=== PATIENT | female | born 1965 | race Caucasian/White ===

== ENCOUNTER 2022-11-13 16:26 | Emergency (ER) | payer MEDICARE, SELFPAY ==
[2022-11-13 16:36] VITALS: BP 125/73; PULSE 79; RESP 20; TEMP 36.8; O2SAT 99
--- NOTE | 2022-11-13 17:15 | DI.RAD_ITS ---
Exam(s) XR RIBS RT W PA LAT CHEST EXAM: XR RIBS RT W PA LAT CHEST CLINICAL HISTORY: Fall, Right Side TECHNIQUE: 2D digital imaging was performed.Six images were obtained. COMPARISON: No exams were available for comparison FINDINGS: MEDIASTINUM: Normal. HEART: Normal. PULMONARY VASCULATURE: Normal. LUNGS: Clear. PLEURAL SPACE: No pleural effusion or pneumothorax. BONE:Within normal limits for the patient's age. Postsurgical changes are seen in the cervical spine . RIGHT RIBS: Normal. OTHER FINDINGS:There are surgical clips in the right upper quadrant of the abdomen. IMPRESSION: 1. No acute pulmonary findings. 2. Unremarkable right ribs. DATA REPOSITORY: RADIATION DOSE DELIVERED:
--- NOTE | 2022-11-13 17:54 | ED.GENADUL_ITS ---
Discharge Plan Disposition Patient Disposition: Home Condition: Stable Discharge Details Clinical Impression: Rib pain on right side, Fall (on) (from) other stairs and steps, initial encounter Primary Care Provider: None,None ED Provider: Ragini Logan Discharge Instructions Instructions: Fall Prevention (ED), Chest Wall Pain (ED) Additional Instructions: No evidence of broken bones on the x-ray. No problems with your lung. Apply ice, rest. Please take Tylenol or Ibuprofen with food every 4-6 hours as needed for pain and swelling. Take deep breaths to avoid getting pneumonia. You have no rib fracture. Follow up with primary care provider in 3-5 days. Return to ED sooner if any worsening or concerns. Increase oral fluids. Discharge Data Discharge Date/Time-TO BE ENTERED AT DEPARTURE: 11/13/22 19:19 Medical Decision Making 57-year-old female presents to the ER after a mechanical trip and fall at 0730 this morning in a parking lot. She does have some rib pain on the right side denies loss of consciousness no LOC she also has a small abrasion on her right knee. Lung sounds are clear to auscultation bilaterally. She did take Tylenol prior to arrival. X-ray rib and chest air series ordered. Ibuprofen 600 mg p.o. Patient is ambulatory here in the department alert and oriented. Rib series x-ray is negative. No pleural effusion or pneumothorax. Patient reports that she cannot take ibuprofen. I did consider lidocaine patch but she is allergic to lidocaine she reacts with hives. Will order an additional Tylenol and instructed on RICE procedures. This text was generated using [employer] dictation system, please disregard any oddities of phrase or misspellings. HPI General Mode of arrival: ambulatory . Date/Time Provider Initiated Documentation: 11/13/22 17:07 . Limitations to Documentation: no limitations . Information obtained by: patient, RN notes reviewed and old records reviewed . HPI Narrative: 57-year-old female presents to the ER after a mechanical trip and fall at 0730 this morning in a parking lot. She does have some rib pain on the right side denies loss of consciousness no LOC she also has a small abrasion on her right knee. Lung sounds are clear to auscultation bilaterally. She did take Tylenol prior to arrival. Related Data Allergies Allergy/AdvReac Type Severity Reaction Status Date / Time bacitracin Allergy Intermediate Hives Unverified 11/13/22 16:40 [From Neosporin Plus] bee pollen Allergy Intermediate Hives Unverified 11/13/22 16:40 cyclobenzaprine Allergy Intermediate Hives Unverified 11/13/22 16:40 [From Flexeril] lidocaine Allergy Intermediate Hives Unverified 11/13/22 16:40 [From Neosporin Plus] neomycin Allergy Intermediate Hives Unverified 11/13/22 16:40 [From Neosporin Plus] polymyxin B Allergy Intermediate Hives Unverified 11/13/22 16:40 [From Neosporin Plus] pramoxine Allergy Intermediate Hives Unverified 11/13/22 16:40 [From Neosporin Plus] General Stated Complaint: Chest/Rib PEPPER: 4 Review of Systems All systems reviewed & are unremarkable except as noted in HPI and below Musculoskeletal Musculoskeletal: Reports as per HPI and Reports other (Right-sided rib pain, right knee pain after mechanical fall this morning. ) PFSH All Active Problems (Updated 11/13/22 @ 18:42 by Ragini Logan NP) Rib pain on right side (Acute) Fall (on) (from) other stairs and steps, initial encounter (Acute) Social History Smoking risk assessment performed?: No Exam Narrative Exam Narrative: General: Well Developed, Awake and Alert, conversant. Skin: Warm and Dry HEENT: Head: No palpable deformities, Normocephalic Eyes: Pupils PERRLA, EOM's intact. No periorbital eccymosis or step off Ears: Canal patent. Tympanic membranes are clear . No pablo's sign, no hemptympanum. Nose/Face: Atraumatic. Facial bones nontender to palpation and stable with manipulation. Mouth/Throat: No intraoral trauma. Teeth and mandible are intact. Neck: No midline tenderness, no step off, no deformity to palpation of C-spine. Trachea midline. Chest: No surface trauma. Tenderness to the right lateral chest wall. Lungs clear to ausculatation bilaterally. Heart: RRR, no rubs, murmurs or gallop. Abdomen: No abrasions, ecchymosis, or surface trauma. Nondistended. Nontender to palpation no guarding, rebound, or rigidity. Pelvis: Nontender to palpation and stable to compression. Femoral pulses strong and equal Extremities: no surface trauma. Sensation intact. Peripheral pulses intact and equal. Neuro: ANO x4, GCS 15, cranial nerves II through XII intact. Motor and sensory exam nonfocal. Reflexes are symmetric. Course Vital Signs Vital signs: Vital Signs Temperature 36.8 C 11/13/22 16:36 Pulse 79 11/13/22 16:36 Respiratory Rate 20 11/13/22 16:36 Blood Pressure 125/73 11/13/22 16:36 Pulse Oximetry 99 11/13/22 16:36 Temperature 36.8 C 11/13/22 16:36 Pulse 79 11/13/22 16:36 Respiratory Rate 20 11/13/22 16:36 Respiratory Effort Normal 11/13/22 16:41 Blood Pressure 125/73 11/13/22 16:36 Blood Pressure Position Sitting 11/13/22 16:36 Pulse Oximetry 99 11/13/22 16:36 Oxygen Delivery Method Room Air 11/13/22 16:36 Oxygen Flow Rate 0 11/13/22 16:36 Pain Level 9 11/13/22 16:36
[2022-11-13] MEDS: Acetaminophen 500 MG TAB PO (19:18)
== END 2022-11-13 19:19 | disposition home or self-care (01) ==
PROVIDERS: Emergency Provider Registered Nurse Emergency
DX: R07.9 Chest pain, unspecified (principal); W10.9XXA Fall (on) (from) unspecified stairs and steps, initial encounter
CPT/HCPCS: 99283; 71046; 71100

== ENCOUNTER 2022-11-16 09:51 | Emergency (ER) | payer MEDICARE, SELFPAY ==
[2022-11-16 09:58] VITALS: BP 141/85; PULSE 60; TEMP 36.8; O2SAT 98
--- NOTE | 2022-11-16 10:20 | W.ED.GENAD ---
Discharge Plan Disposition Patient Disposition: Home Discharge Details Clinical Impression: Rib pain on right side Primary Care Provider: None,None ED Provider: Herbert Moura Home Meds and New Rx's Prescriptions: New diclofenac sodium 3 % gel 1 applic topical TID PRN (Reason: pain) Qty: 100 1RF Discharge Instructions Instructions: Chest Wall Pain (ED) Additional Instructions: If you have any new or significant worsening of pain or discomfort feel free to return to the emergency department for reassessment. Otherwise continue to use acetaminophen [id number] just do not exceed 3000 mg in a 24-hour period Use pain medication as prescribed and follow-up with urgent care or return to the emergency department as needed. Discharge Data Discharge Date/Time-TO BE ENTERED AT DEPARTURE: 11/16/22 10:43 Medical Decision Making Patient presenting to the emergency department for chief complaint of continued right rib pain. Patient reports fall 3 days ago which she was seen in the emergency department and had imaging performed and no signs of fracture seen at that time. Patient denies any reinjury or trauma, fever chills, productive cough, or other symptoms but just continuing and slightly worsening rib pain. Physical exam shows tenderness over the right mid to lower ribs no crepitus is noted, no ecchymosis is noted clear lung sounds no respiratory distress and normal vital signs except slight hypertension which I feel may be secondary to patient's pain. Patient states she has been using acetaminophen but this has not seemed to help. She states she cannot take NSAIDs orally due to gastric surgery and is allergic to topical lidocaine. Discussed with patient reimaging and how I do not feel this would change patient's disposition even if she had a rib fracture. Patient stated full understanding of this and was agreeable to hold off on repeat imaging. We will try Voltaren gel to see if this helps patient's pain better and limited prescription of tramadol. PDMP was queried and I see no concerning findings for abuse especially with only giving patient 2 to go tablets. Patient will otherwise continue to use acetaminophen and return for new or worsening symptoms. Did offer to assist patient to follow-up with primary care provider but she states that she is extremely leery of primary care providers due to negative experience with her . Patient instructed to return for new or worsening symptoms or further concerns. After discussion of diagnosis and plan of care patient has no further needs, questions, or concerns and states clear understanding to return to the emergency department for any worsening symptoms. This documentation was generated using [employer] dictation system, please disregard any oddities of phrase or misspellings. Medical Records Medical records reviewed: Yes I reviewed the patient's medical records. Medical records narrative: Reviewed previous emergency department visit along with radiological interpretation of imaging HPI General Mode of arrival: ambulatory. Date/Time Provider Initiated Documentation: 11/16/22 09:55. Limitations to Documentation: no limitations. Information obtained by: patient and RN notes reviewed. History of Present Illness 57 year old F presents to the emergency department with the chief complaint of Right rib pain, described as moderate and severe, Quality is described as aching and sharp, and is localized to the right (Right ribs). Patient reports no radiation. Patient started experiencing this day(s) (3) and it has been constant. No relieving factors improve symptom(s), Movement worsens symptoms . Patient notes no other symptoms.. Patient did receive the following treatments prior to arrival, other (Acetaminophen) Related Data Home Medications Medication Instructions Recorded Confirmed diclofenac sodium 3 % topical gel 1 applic topical TID PRN pain #100 11/16/22 grams Previous Rx's Medication Instructions Recorded diclofenac sodium 3 % topical gel 1 applic topical TID PRN pain #100 11/16/22 grams Allergies Allergy/AdvReac Type Severity Reaction Status Date / Time bacitracin Allergy Intermediate Hives Unverified 11/16/22 10:03 [From Neosporin Plus] bee pollen Allergy Intermediate Hives Unverified 11/16/22 10:03 cyclobenzaprine Allergy Intermediate Hives Unverified 11/16/22 10:03 [From Flexeril] lidocaine Allergy Intermediate Hives Unverified 11/16/22 10:03 [From Neosporin Plus] neomycin Allergy Intermediate Hives Unverified 11/16/22 10:03 [From Neosporin Plus] polymyxin B Allergy Intermediate Hives Unverified 11/16/22 10:03 [From Neosporin Plus] pramoxine Allergy Intermediate Hives Unverified 11/16/22 10:03 [From Neosporin Plus] General Stated Complaint: Orthopedic PEPPER: 3 Review of Systems Constitutional Constitutional: Denies chills, Denies fever(s), Denies malaise and Denies weakness Cardiovascular Cardiovascular: Denies chest pain and Denies dyspnea Respiratory Respiratory: Reports cough, Reports pain on inspiration, Reports pain with cough, Denies dyspnea and Reports other (Right rib pain) Gastrointestinal Gastrointestinal: Denies abdominal pain, Denies nausea and Denies vomiting Musculoskeletal Musculoskeletal: Reports as per HPI and Denies back pain Integumentary/Breasts Skin/Breast: Denies unusual bruising and Denies wounds Neurologic Neurologic: Denies weakness PFSH All Active Problems (Updated 11/16/22 @ 10:31 by Herbert Moura NP) Rib pain on right side (Acute) Fall (on) (from) other stairs and steps, initial encounter (Acute) Social History Smoking/Tobacco Use Status: Current-Occasional Smoking risk assessment performed?: Yes Substance use type: marijuana Housing: homeless Exam Const General: cooperative, no acute distress and not ill appearing Orientation: alert, awake and oriented x3 HENMT Mouth: moist mucous membranes Chest Chest: normal inspection of the chest, no crepitus, localized rib tenderness with anteroposterior compression left mid-scapular line involving the 7th rib and involving the 8th rib, tenderness rib right mid-clavicular line involving the 7th rib and involving the 8th rib and No rash Resp Effort & Inspection: normal respiratory effort, able to speak in complete sentences and no respiratory distress Auscultation: clear to auscultation bilaterally Cardio Rate: regular rate Rhythm: regular rhythm Heart Sounds: S1 normal and S2 normal Skin General skin exam: no rashes or lesions noted Neuro General: patient alert, patient awake, patient oriented x3, moves all extremities and no focal motor deficits Sensory Exam: no sensory deficits noted Course Vital Signs Vital signs: Vital Signs Temperature 36.8 C 11/16/22 09:58 Pulse 60 11/16/22 09:58 Blood Pressure 141/85 H 11/16/22 09:58 Pulse Oximetry 98 11/16/22 09:58 Temperature 36.8 C 11/16/22 09:58 Temperature Source Skin 11/16/22 09:58 Pulse 60 11/16/22 09:58 Respiratory Effort Normal 11/16/22 10:01 Blood Pressure 141/85 H 11/16/22 09:58 Pulse Oximetry 98 11/16/22 09:58
[2022-11-16] MEDS: traMADol 50 MG TAB PO (10:33)
== END 2022-11-16 10:43 | disposition home or self-care (01) ==
PROVIDERS: Emergency Provider Nurse Practitioner Family
DX: R07.81 Pleurodynia (principal)
CPT/HCPCS: 99283

== ENCOUNTER 2022-12-29 20:05 | Emergency (ER) | payer MEDICARE, SELFPAY ==
[2022-12-29] VITALS (31 sets, daily range): BP systolic 121–234; BP diastolic 54–182; PULSE 44–131; RESP 7–25; TEMP 36.6; O2SAT 98–100
--- NOTE | 2022-12-29 20:00 | RT.EKG_ITS ---
APPROVED REPORT Exam: Resting ECG Reason for Exam: chest pain Patient Location: E HR:59 bpm ECG Measurements Heart Rate 59 AXIS CO 133 P 96 QRSd 91 QRS 84 QT 429 T 69 QTc 415 Conclusion Sinus bradycardia...rate< 60 Ventricular premature complex...V complex w/ short R-R interval Narrow complex sinus bradycardia at a rate of 59. Normal axis. Intervals within normal limits. T w ave inversion in aVL. No ST segment abnormalities.
--- NOTE | 2022-12-29 20:02 | ED.GENADUL_ITS ---
Discharge Plan Disposition Patient Disposition: Transfer-Acute Inpatient Care Specific Acute Inpt Facility: [facility] Discharge Details Clinical Impression: Angina pectoris, unstable, Blood pressure elevated without history of HTN, Macrocytic anemia Primary Care Provider: Unknown,Unknown ED Provider: Al Campos Home Meds and New Rx's Prescriptions: No Action diclofenac sodium 3 % gel 1 applic topical TID PRN (Reason: pain) Qty: 100 1RF Medical Decision Making This is an uncomfortable appearing normothermic and not tachycardic but markedly hypertensive 57-year-old female smoker with ECG changes concerning for the possibility of early ACS. She has evolving changes with T wave inversion in aVL new since prehospital ECG just prior to arrival which was at that time significant for poor R wave progression. In addition her pain seems to be crescendo pattern chest pain concerning for unstable angina. She also has on limited bedside ultrasound concern for possible septal wall motion abnormality. She has received aspirin. We will repeat ECG and treat with nitroglycerin 0.4 mg sublingually every 5 minutes. We will repeat an ECG now. She is nauseous but not been vomiting so doubt esophageal rupture. No shortness of breath to suggest PE and patient is in neither tachycardic nor hypoxic. No tearing quality aortic dissection. No rash to chest to suggest zoster. No history of trauma to suggest increased risk for pneumothorax. No epigastric pain to suggest pancreatitis. No right upper quadrant tenderness to suggest acute liliya cystitis. Not hypotensive nor dialysis patient so doubt tamponade. We will reach out to [facility] following troponin results as I feel that she will benefit from a left heart catheterization despite her reportedly reassuring stress test 3 to 4 years ago. Will initiate heparinization given unstable angina. 8:38 PM Nitroglycerin did not improve the patient's symptoms. We will treat with 50 mcg of fentanyl. 8:45 PM Initial troponin negative. Comprehensive metabolic panel with normal creatinine. Mild hypoalbuminemia. No anion gap. No prior for comparison. 9:07 PM Normal reassuring magnesium. PTT within normal limits. Heparin has been started. Repeat ECG showing no evolving changes. 9:24 PM Patient reports that her pain is slightly improved. She does state that still radiates to her left shoulder. Still awaiting callback. 9:36 PM CBC with no leukocytosis nor anemia but mild macrocytic anemia with a hemoglobin of 11.1. 9:52 PM I spoke with Dr. Nighat Hazel from cardiology at [facility]. She reported that the accepting from cardiology at [facility] would be Dr. Kali Ontiveros. She advised atorvastatin 80 mg which I ordered. She advised deferring clopidogrel at this point time but that if the patient made troponin she advised loading with 600 mg of clopidogrel. We will reach out to the hospitalist locally for hospitalization while the patient awaits her bed at [facility] which will likely occur tomorrow. 10:13 PM I spoke with Dr. Partida who agreed graciously to accept the patient for hospitalization. I ordered her 4 mg of morphine. 10:[address] [facility] transfer center reported that the patient had been accepted this evening for transfer. Nursing has updated Dr. Partida. I will sign transfer paperwork and have the patient sent via a icebox worker. I was going to order labetalol however the patient was markedly bradycardic so we will defer labetalol. Chronic conditions affecting the care of the patient: Tobacco use History obtained from an outside historian: Paramedics External record review: N/A Diagnostic interpretations performed by me: [Per my independent interpretation chest x-ray shows:] Unremarkable portable chest x-ray Per my independent interpretation EKG shows: ECG #1: Narrow complex sinus bradycardia at a rate of 59. Normal axis. Intervals within normal limits. T wave inversion in aVL. No ST segment abnormalities. ECG #2: narrow complex sinus bradycardia at a rate of 51. Normal axis. Poor R wave progression based on R wave in V3 3 mm. T wave inversion in aVL has resolved. Mild lateral ST segment depressions appear new compared to prior. Prior dated earlier this evening. ECG #3: Narrow complex sinus bradycardia at a rate of 50. Normal axis. Intervals within normal limits. Persistent T wave flattening in aVL. Mild ST segment depressions left lateral chest wall leads. No ST segment elevations. Appears similar to prior dated earlier this evening. Medications: Nitroglycerin, aspirin, ondansetron Social determinants of health affecting disposition: N/A Management discussed with: Cardiology at [facility] Treatment/interventions considered: Withholding heparin however I heparinized the patient given concern for unstable angina Response to therapies provided: No significant improvement with nitroglycerin HPI General Date/Time Provider Initiated Documentation: 12/29/22 20:35 . HPI Narrative: This is a 57-year-old female with no reported past medical history arriving to the emergency department via EMS in the setting of chest pain. Patient reports that she has intermittently had chest pain for the past several days. This evening it occurred at rest and radiated to her left arm and down into her left hand which now feels numb. She reports that it is substernal and squeezing. She reports that it is improved by rest. She reports that it is exacerbated by exertion. She is not feeling short of breath. She has been nauseous but has not been vomiting. She received aspirin nitroglycerin and ondansetron with paramedics. She takes no medications. She does not know her family history as she reportedly has been adopted. She has no history of hypertension hyperlipidemia nor diabetes. She reportedly had a stress test performed 3 to 4 years ago and [place]. Related Data Home Medications Medication Instructions Recorded Confirmed diclofenac sodium 3 % topical gel 1 applic topical TID PRN pain #100 11/16/22 grams Previous Rx's Medication Instructions Recorded diclofenac sodium 3 % topical gel 1 applic topical TID PRN pain #100 11/16/22 grams Allergies Allergy/AdvReac Type Severity Reaction Status Date / Time bacitracin Allergy Intermediate Hives Unverified 11/16/22 10:03 [From Neosporin Plus] bee pollen Allergy Intermediate Hives Unverified 11/16/22 10:03 cyclobenzaprine Allergy Intermediate Hives Unverified 11/16/22 10:03 [From Flexeril] lidocaine Allergy Intermediate Hives Unverified 11/16/22 10:03 [From Neosporin Plus] neomycin Allergy Intermediate Hives Unverified 11/16/22 10:03 [From Neosporin Plus] polymyxin B Allergy Intermediate Hives Unverified 11/16/22 10:03 [From Neosporin Plus] pramoxine Allergy Intermediate Hives Unverified 11/16/22 10:03 [From Neosporin Plus] General PEPPER: 3 PFSH All Active Problems (Updated 12/29/22 @ 21:37 by Al Campos MD) Angina pectoris, unstable (Acute) Blood pressure elevated without history of HTN (Acute) Macrocytic anemia (Acute) Social History Smoking/Tobacco Use Status: Current-Occasional Tobacco Type: cigarettes Smoking risk assessment performed?: Yes Alcohol Intake: current Alcohol Intake frequency: holidays/special occasions only Alcohol type: hard liquor Drug use: Socially Substance use type: marijuana Housing: homeless Do you feel safe at home: Yes Do you feel safe in your relationship?: Yes Exam Narrative Exam Narrative: General: uncomfortable-appearing in no acute distress speaking in complete sentences. Head: Normocephalic, atraumatic. Eye: Pupils equal, round reactive to light. Extraocular eye movements intact. No conjunctival injection. No scleral icterus. Ear, nose, mouth, throat: Grossly normal inspection. Normal voice, handling secretions normally. Neck: Trachea midline. Cardiovascular: Well-perfused distal extremities. Bradycardic rhythm. No murmurs. Respiratory: Nonlabored respiration. Clear lungs bilaterally. Gastrointestinal: Nondistended abdomen. Soft nontender. Musculoskeletal: No significant lower extremity pitting edema. Moving all 4 extremities spontaneously. Skin: Normal for age and race, grossly normal temperature and turgor. No acute rash. Neurologic: Alert and appropriate, no apparent acute deficits. Psychiatric: Mood and manner are appropriate. Grooming and personal hygiene are appropriate. Critical Care Time Critical Care Time Critical Care Time: Yes Total Critical Care Time: 30 Attestation: Active chest pain requiring nitroglycerin and hemodynamic monitoring for hypertension with bradycardia POCUS Exam (ED) Limited Cardiac Exam DATE OF EXAM: 12/29/22 TIME OF EXAM: 20:29 REASON FOR EXAM: Chest pain VISUALIZED STRUCTURES: Left ventricle, LVOT and Interventricular septum VIEW OBTAINED: Apical 4-Chamber, Parasternal long-axis and Subxiphoid PERTINENT FINDINGS/IMPRESSION: Other (Concern for septal wall motion abnormality. Aortic outflow track less than 4 cm.); No LV dysfunction and No p ericardial effusion DIFFERENTIAL DIAGNOSES: Aortic outflow track less than 4 cm. Good squeeze. Elevated less than RV. Concern for septal wall motion abnormality. Exam complete
--- NOTE | 2022-12-29 20:15 | DI.RAD_ITS ---
Exam(s) XR PORTABLE CHEST AP EXAM: XR PORTABLE CHEST AP CLINICAL HISTORY: Chest pain. TECHNIQUE: 2D digital imaging was performed. COMPARISON: CR XR RIBS RT W PA LAT CHEST from 11/13/2022 FINDINGS: Single AP portable view. Heart size is upper normal. The mediastinum is not widened. Lungs are clear. No infiltrates nor obvious pleural effusions. IMPRESSION: No acute pulmonary findings on this single AP portable view of the chest. DATA REPOSITORY: RADIATION DOSE DELIVERED:
--- NOTE | 2022-12-29 20:15 | RT.EKG_ITS ---
APPROVED REPORT Exam: Resting ECG Reason for Exam: chest pain Patient Location: E HR:51 bpm ECG Measurements Heart Rate 51 AXIS WI 139 P 59 QRSd 90 QRS 71 QT 444 T 55 QTc 408 Conclusion Sinus bradycardia...rate< 60 narrow complex sinus bradycardia at a rate of 51. Normal axis. Poor R wave progression based on R w ave in V3 3 mm. T wave inversion in aVL has resolved. Mild lateral ST segment depressions appear ne w compared to prior. Prior dated earlier this evening.
[2022-12-29 20:38] LABS: ALT 10 U/L (14-59); AST 10 U/L (15-37); Albumin 3.3 g/dL (3.4-5.0); Alkaline Phosphatase 89 U/L (46-116); Anion Gap 5.3 mmol/L (3-11); BUN 11 mg/dL (7-18); Bilirubin, Total 0.2 mg/dL (0.2-1.0); CO2 28.7 mmol/L (21.0-32.0); CREATININE 0.7 mg/dL (0.55-1.02); Calcium 8.8 mg/dL (8.5-10.1); Chloride 108 mmol/L (98-107); Estimated GFR 100.19 (mL/min/1.73m2); Glucose 94 mg/dL (74-106); Potassium 4.1 mmol/L (3.5-5.1); Sodium 142 mmol/L (136-145); Total Protein 6.5 g/dL (6.4-8.2); Troponin I < 50 ng/L (<or=60)
[2022-12-29] MEDS: fentaNYL 100 MCG/2 ML VIAL 50 MCG IVP (20:43)
--- NOTE | 2022-12-29 20:45 | RT.EKG_ITS ---
APPROVED REPORT Exam: Resting ECG Reason for Exam: chest pain Patient Location: E HR:50 bpm ECG Measurements Heart Rate 50 AXIS [place] 144 P 79 QRSd 86 QRS 58 QT 446 T 47 QTc 409 Conclusion Sinus bradycardia...rate< 60 Narrow complex sinus bradycardia at a rate of 50. Normal axis. Intervals within normal limits. Per sistent T wave flattening in aVL. Mild ST segment depressions left lateral chest wall leads. No ST segment elevations. Appears similar to prior dated earlier this evening.
[2022-12-29] MEDS: Heparin in 0.45% NaCl 25,000 UNIT/250 ML BAG 7 UNIT IV (20:59)
[2022-12-29 21:03] LABS: PTT Activated 24.7 sec (21.5-31.9)
--- NOTE | 2022-12-29 21:23 | DI.VRAD_ITS ---
PROCEDURE INFORMATION: Exam: XR Chest Exam date and time: 12/29/2022 8:48 PM Age: 57 years old Clinical indication: Other: Unspecified; Patient HX: stabbing pain TECHNIQUE: Imaging protocol: Radiologic exam of the chest. Views: 1 view. COMPARISON: CR XR RIBS RT W PA LAT CHEST 11/13/2022 5:58 PM FINDINGS: Lungs: No consolidation. Pleural spaces: Unremarkable. No pleural effusion. No pneumothorax. Heart/Mediastinum: Unremarkable. No cardiomegaly. Bones/joints: Unremarkable. Organs: Status post cholecystectomy. IMPRESSION: No infiltrates or effusions. Dictated and Authenticated by: Avinash Engel MD. Ordering:SANTOS Melendez MD
[2022-12-29 21:34] LABS: Abs Immature Grans 0.02 10^3/uL (0.0-0.06); Absolute Basophil Count 0.08 10^3/uL (0.0-0.2); Absolute Eosinophil Count 0.35 10^3/uL (0.0-0.7); Absolute Lymphocyte Count 3.07 10^3/uL (1.2-3.4); Absolute Monocyte Count 0.57 10^3/uL (0.1-0.8); Absolute Neutrophil Count 5.46 10^3/uL (1.2-6.7); Basophils % 0.8; Eosinophils % 3.7; HCT 33.7 % (36.0-46.0); HGB 11.1 g/dL (11.2-15.7); Immature Grans % 0.2; Lymphocytes % 32.1; MCH 31.6 pg (27.0-33.0); MCHC 32.9 % (32.0-36.0); MCV 96 fL (80-95); MPV 10.6 fL (8.0-11.0); Neutrophils % 57.2; Platelet Count 309 10^3/uL (130-400); RBC 3.51 10^6/uL (3.93-5.22); RDW 13.1 % (11.7-14.6); RDW-SD 45.6 fL; WBC 9.55 10^3/uL (4.4-10.8)
[2022-12-29] MEDS: Atorvastatin 40 MG TAB 80 MG PO (21:58)
[2022-12-29] MEDS: MORPHine 4 MG/ML SYR IVP (23:07)
[2022-12-29 23:20] LABS: Troponin I < 50 ng/L (<or=60)
--- NOTE | 2022-12-31 08:53 | NUR.NOTE ---
Accessed chart to determine orders for EKG and to determine whether or not one needs to be cancelled. Nursing Note:
== END 2022-12-29 23:30 | disposition short-term general hospital (02) ==
PROVIDERS: Emergency Provider Emergency Medicine
DX: I20.0 Unstable angina (principal); R03.0 Elevated blood-pressure reading, without diagnosis of hypertension; D53.9 Nutritional anemia, unspecified; R07.9 Chest pain, unspecified
CPT/HCPCS: 36415; 80053; 93005; 93308; 96374; 96375; 99291; 71045; 83735; 84484; 85025; 85730; 93010; J2270; J3010

== ENCOUNTER 2023-05-08 12:21 | Emergency (ER) | payer MEDICARE, SELFPAY ==
--- NOTE | 2023-05-08 12:30 | DI.RAD_ITS ---
Exam(s) XR THORACIC SPINE COMPLETE EXAM: XR THORACIC SPINE COMPLETE CLINICAL HISTORY: back injury,fall. TECHNIQUE: 2D digital imaging was performed. COMPARISON: CR XR RIBS RT W PA LAT CHEST from 11/13/2022 CR,XR XR PORTABLE CHEST AP from 12/29/2022 FINDINGS: 3 views There is an anterior fusion plate in the cervical spine at levels C4 through C6 and there is an indep endent anterior placed fusion device a across C6-7. There are intervertebral disc space devices at C 4-5 and C5-6 levels which do not appear retropulsed into the spinal canal. There is slight concavity of the superior endplate of T4, unchanged from chest x-ray 11/13/2022. The re is also minimal loss of height of T12 this has unchanged from lateral chest x-ray of 11/13/2022.. IMPRESSION: Cervical spine hardware as above. Findings at T4 and T12 as described above which appear to have been present on prior lateral chest x- ray of 11/13/2022. No obvious acute thoracic spinal column fractures. DATA REPOSITORY: RADIATION DOSE DELIVERED:
--- NOTE | 2023-05-08 12:30 | DI.RAD_ITS ---
Exam(s) XR CHEST 2V PA LATERAL EXAM: XR CHEST 2V PA LATERAL CLINICAL HISTORY: fall, trauma to back. TECHNIQUE: 2D digital imaging was performed. COMPARISON: CR,XR XR PORTABLE CHEST AP from 12/29/2022 FINDINGS: 2 views: Heart size is normal. The mediastinum is not widened. Lungs are clear. No infiltrates nor pleural effusions. Fusion plate in the lower cervical spine noted. IMPRESSION: No acute pulmonary findings. DATA REPOSITORY: RADIATION DOSE DELIVERED:
[2023-05-08 12:34] VITALS: BP 122/60; PULSE 77; RESP 16; TEMP 36.9; O2SAT 100
[2023-05-08] MEDS: Acetaminophen 500 MG TAB (12:44)
--- NOTE | 2023-05-08 14:35 | NUR.NOTE ---
Referral given to Care Management for help locating a Primary Care Physician.
--- NOTE | 2023-05-08 15:26 | ED.GENADUL_ITS ---
HPI General Date/Time Provider Initiated Documentation: 05/08/23 12:38 . HPI Narrative: This 58-year-old female presents with report of back pain. She states that a stool fell on her back when she was cleaning the floor. She denies any additional injuries. She denies any chest pain. She has had some mild shortness of breath because she states it hurts when she takes a deep breath secondary to pain. She denies any head injury or loss of consciousness. She denies history of coagulopathy. She denies any strength or sensation changes to her extremities or changes in bowel or bladder. Related Data Home Medications Medication Instructions Recorded Confirmed diclofenac sodium 3 % topical gel 1 applic topical TID PRN pain #100 11/16/22 05/08/23 grams metaxalone 800 mg tablet 800 mg PO TID #14 tabs 05/08/23 Previous Rx's Medication Instructions Recorded diclofenac sodium 3 % topical gel 1 applic topical TID PRN pain #100 11/16/22 grams metaxalone 800 mg tablet 800 mg PO TID #14 tabs 05/08/23 Allergies Allergy/AdvReac Type Severity Reaction Status Date / Time bacitracin Allergy Intermediate Hives Unverified 05/08/23 12:37 [From Neosporin Plus] bee pollen Allergy Intermediate Hives Unverified 05/08/23 12:37 cyclobenzaprine Allergy Intermediate Hives Unverified 05/08/23 12:37 [From Flexeril] Iodinated Contrast Media Allergy Intermediate hives Unverified 05/08/23 12:37 lidocaine Allergy Intermediate Hives Unverified 05/08/23 12:37 [From Neosporin Plus] neomycin Allergy Intermediate Hives Unverified 05/08/23 12:37 [From Neosporin Plus] polymyxin B Allergy Intermediate Hives Unverified 05/08/23 12:37 [From Neosporin Plus] pramoxine Allergy Intermediate Hives Unverified 05/08/23 12:37 [From Neosporin Plus] NSAIDS (Non-Steroidal AdvReac Intermediate Other (See Unverified 05/08/23 12:37 Anti-Inflamma Comment) General Stated Complaint: Nk/Back Pain PEPPER: 4 Course Vital Signs Vital signs: Vital Signs Temperature 36.9 C 05/08/23 12:34 Pulse 77 05/08/23 12:34 Respiratory Rate 16 05/08/23 12:34 Blood Pressure 122/60 05/08/23 12:34 Pulse Oximetry 100 05/08/23 12:34 Temperature 36.9 C 05/08/23 12:34 Temperature Source Oral 05/08/23 12:34 Pulse 77 05/08/23 12:34 Respiratory Rate 16 05/08/23 12:34 Respiratory Effort Normal, Non-Labored 05/08/23 13:01 Blood Pressure 122/60 05/08/23 12:34 Blood Pressure Position Sitting 05/08/23 12:34 Pulse Oximetry 100 05/08/23 12:34 Oxygen Delivery Method Room Air 05/08/23 12:34 Oxygen Flow Rate 0 05/08/23 12:34 Pain Level 10 05/08/23 13:39 Medical Decision Making 58-year-old female presenting with report of back pain after barstool fell on her. Denies any additional injuries or loss conscious. Denies transparency. She has reproducible tenderness to her thoracic spine, no visible sign of trauma, lungs clear to auscultation bilaterally, strength and sensation intact distally, no abdominal tenderness, no anterior chest wall tenderness X-ray of thoracic spine and chest x-ray do not show evidence of acute abnormality, specifically no pneumothorax or obvious fracture per radiology interpretation my review Patient is neurologically intact, ambulatory with antalgic gait, given walker for comfort Skelaxin and diclofenac gel Clinically low suspicion for intra-abdominal pathology, again no CVA tenderness, no hematoma, neurovascularly intact, no cervical spine tenderness Return precautions reviewed and patient expressed understanding Quality:SDOH Health Related Social Needs: No Data to Display PFSH All Active Problems (Updated 05/08/23 @ 14:32 by MALIK Lozano) Contusion of back (Acute) Encounter for immunization (Acute) Social History Smoking/Tobacco Use Status: Current-Occasional Tobacco Type: cigarettes Smoking risk assessment performed?: Yes Alcohol Intake: current Alcohol Intake frequency: holidays/special occasions only Alcohol type: hard liquor Drug use: Socially Substance use type: marijuana Housing: other Do you feel safe at home: Yes Do you feel safe in your relationship?: Yes Discharge Plan Disposition Patient Disposition: Home Discharge Details Clinical Impression: Contusion of back Primary Care Provider: Unknown,Unknown ED Provider: Mony Gates Home Meds and New Rx's Prescriptions: New metaxalone 800 mg tablet 800 mg PO TID Qty: 14 0RF Continued diclofenac sodium 3 % gel 1 applic topical TID PRN (Reason: pain) Qty: 100 1RF Discharge Instructions Instructions: Contusion in Adults (ED) Additional Instructions: Take metaxalone as needed for musculoskeletal pain Tylenol 650 every 4 hours for pain control, do not exceed 4 g of Tylenol daily Warm compresses or cool compresses, whichever feels better 2 hours after application Use your walker with ambulation, this will give you some support Should you have new or worsening complaints, changes in bowel or bladder, abdominal pain, or any additional concerns please be reevaluated Should he still have persistent pain in 1 week I do your recommend reassessment at that time Discharge Data Discharge Date/Time-TO BE ENTERED AT DEPARTURE: 05/08/23 14:55
--- OUTSIDE RECORDS SUMMARY | 2023-05-10 10:20 | XMS_ITS | CCD ---
Author Name Unknown Address [address] [place] [id number] Organization Unknown Address [address], [place] [id number] Care Team Providers Care Box Loader Name Role Phone LINNETTE JORGE Attending Physician [phone] LINNETTE JORGE Er Physician 6 [phone] MADDY Rojas Registered Nurse [phone] Vital Signs Vital Sign Value Unit Date/Time Recent/Initial ? BMI (Body Mass Index) 25.61 kg/m^2 08/25/2022 13: 59 Initial VS Weight Measured 140 lbs 08/25/2022 13:59 Ini tial VS Height 62 in 08/25/2022 13:59 Initial VS BSA (Body Surface Area) 1.67 m^2 08/25/2022 1 3:59 Initial VS BP Systolic 154 mmHg 08/25/2022 13:59 Initial VS BP Diastolic 96 mmHg 08/25/2022 13:59 Initia l VS Respiratory Rate 18 bpm 08/25/2022 13:59 In itial VS Heart Rate 84 bpm 08/25/2022 13:59 Initial VS O2 % BldC Oximetry 96 % 08/25/2022 13:59 Initial VS Body Temperature 37 degrees 08/25/2022 13:59 In itial VS Allergies Allergy Code Allergy Type Reaction Status CONTRAST MEDIA, IODINE RELATED 0 Drug allergy Active NEOSPORIN 0 Drug allergy Active CYCLOBENZAPRINE 03611 Drug allergy Active Procedures Unknown or Not Available. History of Immunizations Unknown or Not Available. Problems Unknown or Not Available. Results Unknown or Not Available. Active Medications Medication Code Dose Units Frequency Route Modificatio n Start Date/Time predniSONE 20MG Oral Tablet 650936 1 TABLET DAILY ORAL 08/26/19 23 14:16 Prescription Detail TAKE 1 TABLET ORAL DAILY in the morning with food Medications Administered During Visit Unknown or Not Available. Encounters Encounter Diagnosis Diagnosis Code Start Date Enthesopathy, unspecified M779 2022 Social History Smoking Status Code Start Date End Date Current some day smoker [id number] Patient Decision Aids Unknown or Not Available. Discharge Instructions You were admitted to [facility] on 08/25/2022 13:46 with a principal diagnosis of Enthesopathy, unspecified You were discharged from [facility] on 08/25/2022 14:41 Should you have any questions prior to discharge, please contact a member of your healthcare team. If you have left the hospital and have any questions, please contact your primary care physician. Chief Complaint and Reason For Visit Chief Complaint Date of Onset RIGHT SHOULDER PAIN Function Status Unknown or Not Available. Plan of Care Unknown or Not Available. Referral/Transition of Care Unknown or Not Available.
== END 2023-05-08 14:55 | disposition home or self-care (01) ==
PROVIDERS: Emergency Provider Physician Assistant
DX: S20.224A Contusion of middle back wall of thorax, initial encounter (principal); Z98.1 Arthrodesis status; Z98.84 Bariatric surgery status; F17.210 Nicotine dependence, cigarettes, uncomplicated; W20.8XXA Other cause of strike by thrown, projected or falling object, initial encounter; Y93.E5 Activity, floor mopping and cleaning; Y92.010 Kitchen of single-family (private) house as the place of occurrence of the external cause
CPT/HCPCS: 99283; 71046; 72072

== ENCOUNTER 2023-05-31 10:19 | Emergency (ER) | payer MEDICARE, SELFPAY ==
[2023-05-31 10:33] VITALS: BP 81/57; PULSE 62; RESP 17; TEMP 36.6; O2SAT 98
--- NOTE | 2023-05-31 10:39 | ED.GENADUL_ITS ---
HPI General Date/Time Provider Initiated Documentation: 05/31/23 10:33 . HPI Narrative: 58-year-old female presents with bodyaches in the setting of testing positive for COVID-19. Related Data Home Medications Medication Instructions Recorded Confirmed diclofenac sodium 3 % topical gel 1 applic topical TID PRN pain #100 11/16/22 05/08/23 grams metaxalone 800 mg tablet 800 mg PO TID #14 tabs 05/08/23 Previous Rx's Medication Instructions Recorded diclofenac sodium 3 % topical gel 1 applic topical TID PRN pain #100 11/16/22 grams metaxalone 800 mg tablet 800 mg PO TID #14 tabs 05/08/23 Allergies Allergy/AdvReac Type Severity Reaction Status Date / Time bacitracin Allergy Intermediate Hives Unverified 05/31/23 10:39 [From Neosporin Plus] bee pollen Allergy Intermediate Hives Unverified 05/31/23 10:39 cyclobenzaprine Allergy Intermediate Hives Unverified 05/31/23 10:39 [From Flexeril] Iodinated Contrast Media Allergy Intermediate hives Unverified 05/31/23 10:39 lidocaine Allergy Intermediate Hives Unverified 05/31/23 10:39 [From Neosporin Plus] neomycin Allergy Intermediate Hives Unverified 05/31/23 10:39 [From Neosporin Plus] polymyxin B Allergy Intermediate Hives Unverified 05/31/23 10:39 [From Neosporin Plus] pramoxine Allergy Intermediate Hives Unverified 05/31/23 10:39 [From Neosporin Plus] NSAIDS (Non-Steroidal AdvReac Intermediate Other (See Unverified 05/31/23 10:39 Anti-Inflamma Comment) General Stated Complaint: GenMedical PEPPER: 4 Review of Systems Narrative: Review of Systems Constitutional: Body ache Eyes: negative ENT: negative Cardiovascular: negative Respiratory: negative Gastrointestinal: negative : negative Musculoskeletal: negative Skin: negative Neurologic: negative Psych: negative Exam Narrative Exam Narrative: Physical Examination General: alert, awake, cooperative, resting comfortably, no acute distress HEENT: normocephalic, atraumatic; PERRL, EOM intact, conjunctiva normal; no nasal discharge; moist mucous membranes, oral and pharyngeal mucosa normal, tolerating secretions Neck: supple, trachea midline; full ROM Chest: normal to inspection Respiratory: normal respiratory effort, speaking in full sentences, clear to auscultation, no wheezing, rales or rhonchi Cardiac: regular rate, regular rhythm, S1S2 intact, no murmurs rubs or gallops GI: abdomen soft, non-tender, non-distended; no palpable mass or hepatosplenomegaly Skin: no lesions, rashes or trauma appreciated Neuro: AAOx3, normal speech, moving all extremities Psych: Appropriate mood and affect Course Vital Signs Vital signs: Vital Signs Temperature 36.6 C 05/31/23 10:33 Pulse 62 05/31/23 10:33 Respiratory Rate 17 05/31/23 10:33 Blood Pressure 81/57 L 05/31/23 10:33 Pulse Oximetry 98 05/31/23 10:33 Temperature 36.6 C 05/31/23 10:33 Temperature Source Temporal Artery Scan 05/31/23 10:33 Pulse 62 05/31/23 10:33 Respiratory Rate 17 05/31/23 10:33 Blood Pressure 81/57 L 05/31/23 10:33 Pulse Oximetry 98 05/31/23 10:33 Oxygen Delivery Method Room Air 05/31/23 10:33 Oxygen Flow Rate 0 05/31/23 10:33 Pain Level 8 05/31/23 10:33 Medical Decision Making 58-year-old female presents with bodyaches in the setting of testing positive for COVID-19. Family member with similar symptomatology. No respiratory distress. Nontachycardic afebrile nontoxic. Not hypoxic.. Pressure 81/57 will repeat. Patient does not appear hypovolemic, patient has normal mentation, nontoxic. Trial of dexamethasone Home care instructions and return precautions to be given Quality:SDOH Health Related Social Needs: No Data to Display PFSH All Active Problems (Updated 05/31/23 @ 10:41 by Vargas Godinez MD) COVID (Acute) Contusion of back (Acute) Encounter for immunization (Acute) Social History Smoking/Tobacco Use Status: Current-Occasional Tobacco Type: cigarettes Smoking risk assessment performed?: Yes Alcohol Intake: current Alcohol Intake frequency: holidays/special occasions only Alcohol type: hard liquor Drug use: Socially Substance use type: marijuana Housing: other Do you feel safe at home: Yes Do you feel safe in your relationship?: Yes Discharge Plan Disposition Patient Disposition: Home Condition: Stable Discharge Details Chief Complaint: GenMedical Clinical Impression: COVID ED Provider: Vargas Godinez Home Meds and New Rx's Prescriptions: No Action metaxalone 800 mg tablet 800 mg PO TID Qty: 14 0RF diclofenac sodium 3 % gel 1 applic topical TID PRN (Reason: pain) Qty: 100 1RF Discharge Instructions Instructions: Viral Syndrome (ED)
[2023-05-31] MEDS: Dexamethasone 10 MG/ML VIAL PO (10:45)
[2023-05-31 10:47] VITALS: BP 103/49
[2023-05-31 10:49] VITALS: BP 120/57
[2023-05-31 10:56] VITALS: BP 120/57; PULSE 60; TEMP 36.6; O2SAT 98
== END 2023-05-31 11:05 | disposition home or self-care (01) ==
PROVIDERS: Emergency Provider Emergency Medicine
DX: U07.1 COVID-19 (principal); F17.210 Nicotine dependence, cigarettes, uncomplicated
CPT/HCPCS: 99283; J1100

== ENCOUNTER 2023-07-06 15:25 | Emergency (ER) | payer MEDICARE, SELFPAY ==
[2023-07-06 15:29] VITALS: BP 158/82; PULSE 68; RESP 18; TEMP 36.2; O2SAT 100
--- NOTE | 2023-07-06 15:30 | DI.RAD_ITS ---
Exam(s) XR TIB/FIB LT EXAM: XR TIB/FIB LT CLINICAL HISTORY: rolled left ankle, radiating up leg. TECHNIQUE: 2D digital imaging was performed. COMPARISON: No exams were available for comparison FINDINGS: Two views: No evidence of fracture. Bone density normal. No osseous lesions. No radiopaque foreign body. IMPRESSION: No acute osseous findings in the tibia and fibula. DATA REPOSITORY: RADIATION DOSE DELIVERED:
--- NOTE | 2023-07-06 15:30 | DI.RAD_ITS ---
Exam(s) XR ANKLE LT COMPLETE EXAM: XR ANKLE LT COMPLETE CLINICAL HISTORY: rolled ankle, lateral ankle pain. TECHNIQUE: 2D digital imaging was performed. COMPARISON: No exams were available for comparison FINDINGS: 3 views No evidence of fracture or widening of the ankle mortise. Talar dome unremarkable. Small inferior calculi for noted. Also noted is an enthesophyte on the posterior calcaneus Achilles insertion site IMPRESSION: No acute fracture. DATA REPOSITORY: RADIATION DOSE DELIVERED:
--- NOTE | 2023-07-06 15:35 | ED.GENADUL_ITS ---
Discharge Plan Disposition Patient Disposition: Home Condition: Improving Discharge Details Chief Complaint: Orthopedic Clinical Impression: Ankle sprain Primary Care Provider: None,None ED Provider: Vargas Godinez Home Meds and New Rx's Prescriptions: No Action metaxalone 800 mg tablet 800 mg PO TID Qty: 14 0RF Hold Instructions: patient state she is not taking any medications currently diclofenac sodium 3 % gel 1 applic topical TID PRN (Reason: pain) Qty: 100 1RF Hold Instructions: patient state she is not using this medication Discharge Instructions Instructions: Ankle Sprain (ED) HPI General Date/Time Provider Initiated Documentation: 07/06/23 15:29 . HPI Narrative: 58-year-old female presents 1 day after rolling her left ankle stepped into a hole, pain and swelling to her lateral ankle; pain rating up left leg. No other injuries. Able to ambulate with assistance. Related Data Home Medications Medication Instructions Recorded Confirmed diclofenac sodium 3 % topical gel 1 applic topical TID PRN pain #100 11/16/22 07/06/23 grams metaxalone 800 mg tablet 800 mg PO TID #14 tabs 05/08/23 07/06/23 Previous Rx's Medication Instructions Recorded diclofenac sodium 3 % topical gel 1 applic topical TID PRN pain #100 11/16/22 grams metaxalone 800 mg tablet 800 mg PO TID #14 tabs 05/08/23 Allergies Allergy/AdvReac Type Severity Reaction Status Date / Time bacitracin Allergy Intermediate Hives Unverified 07/06/23 15:32 [From Neosporin Plus] bee pollen Allergy Intermediate Hives Unverified 07/06/23 15:32 cyclobenzaprine Allergy Intermediate Hives Unverified 07/06/23 15:32 [From Flexeril] Iodinated Contrast Media Allergy Intermediate hives Unverified 07/06/23 15:32 lidocaine Allergy Intermediate Hives Unverified 07/06/23 15:32 [From Neosporin Plus] neomycin Allergy Intermediate Hives Unverified 07/06/23 15:32 [From Neosporin Plus] polymyxin B Allergy Intermediate Hives Unverified 07/06/23 15:32 [From Neosporin Plus] pramoxine Allergy Intermediate Hives Unverified 07/06/23 15:32 [From Neosporin Plus] NSAIDS (Non-Steroidal AdvReac Intermediate Other (See Unverified 07/06/23 15:32 Anti-Inflamma Comment) General Stated Complaint: Orthopedic PEPPER: 3 Review of Systems Narrative: Review of Systems Constitutional: negative Eyes: negative ENT: negative Cardiovascular: negative Respiratory: negative Gastrointestinal: negative : negative Musculoskeletal: Ankle pain Skin: negative Neurologic: negative Psych: negative Exam Narrative Exam Narrative: Physical Examination General: alert, awake, cooperative, resting comfortably, no acute distress HEENT: normocephalic, atraumatic Skin: no lesions, rashes or trauma appreciated Neuro: AAOx3, normal speech, moving all extremities Extremities: Left lower extremity: Lateral malleolar tenderness, localized swelling to lateral left ankle, DP pulse intact sensation fully intact, soft compartments range of motion toes foot ankle intact range of motion knee and hip intact, ambulatory with assistance, Psych: Appropriate mood and affect Course Vital Signs Vital signs: Vital Signs Temperature 36.2 C L 07/06/23 15:29 Pulse 68 07/06/23 15:29 Respiratory Rate 18 07/06/23 15:29 Blood Pressure 158/82 H 07/06/23 15:29 Pulse Oximetry 100 07/06/23 15:29 Temperature 36.2 C L 07/06/23 15:29 Temperature Source Skin 07/06/23 15:29 Pulse 68 07/06/23 15:29 Respiratory Rate 18 07/06/23 15:29 Respiratory Effort Normal 07/06/23 15:31 Blood Pressure 158/82 H 07/06/23 15:29 Pulse Oximetry 100 07/06/23 15:29 Oxygen Delivery Method Room Air 07/06/23 15:29 Oxygen Flow Rate 0 07/06/23 15:29 Medical Decision Making 58-year-old female presents after ankle injury left lower extremity yesterday, pain and swelling to lateral left ankle, lateral malleolus tenderness, ambulatory with assistance, able to bear weight, no other signs of trauma. Took Tylenol before arrival. Patient has multiple medication allergies limiting further analgesia. Will obtain x-ray of ankle and tib-fib, consider high-grade sprain versus less likely fracture or dislocation. Disposition pending x-ray results. Home care instructions and return precautions. Likely to be given crutches for home 16: 46 patient resting comfortably no acute distress. No evidence of fracture or dislocation. Will provide crutches for home for likely ankle sprain. Quality:SDOH Health Related Social Needs: No Data to Display PFSH All Active Problems (Updated 07/06/23 @ 16:46 by Vargas Godinez MD) Ankle sprain (Acute) COVID (Acute) Encounter for immunization (Acute) Social History Smoking/Tobacco Use Status: Current-Occasional Tobacco Type: cigarettes Smoking risk assessment performed?: Yes Alcohol Intake: current Alcohol Intake frequency: holidays/special occasions only Alcohol type: hard liquor Drug use: Socially Substance use type: marijuana Housing: other Do you feel safe at home: Yes Do you feel safe in your relationship?: Yes
--- NOTE | 2023-07-06 16:39 | DI.VRAD_ITS ---
PROCEDURE INFORMATION: Exam: XR Left Tibia and Fibula Exam date and time: 07/06/2023 4:11 PM Age: 58 years old Clinical indication: Other: Rolled left ankle, radiating up leg TECHNIQUE: Imaging protocol: Radiologic exam of the left tibia and fibula. Views: 2 views. COMPARISON: CR XR ANKLE LT COMPLETE 06/07/2023 16:10 FINDINGS: Bones/joints: Unremarkable. Soft tissues: Unremarkable. IMPRESSION: No evidence for acute bony injury. If clinical symptoms persist recommend followup film in 7-10 days. Dictated and Authenticated by: Glenda Ramos MD. Ordering:AMRCELO Kaye MD
--- NOTE | 2023-07-06 16:40 | DI.VRAD_ITS ---
PROCEDURE INFORMATION: Exam: XR Left Ankle Exam date and time: 07/06/2023 4:10 PM Age: 58 years old Clinical indication: Other: Rolled ankle, lateral ankle pain TECHNIQUE: Imaging protocol: Radiologic exam of the left ankle. Views: 3 or more views. COMPARISON: No relevant prior studies available. FINDINGS: Bones/joints: No acute bony injury. Plantar and posterior calcaneal spur. Mild degenerative changes of the talonavicular joint. Soft tissues: Unremarkable. IMPRESSION: No evidence for acute bony injury. If clinical symptoms persist recommend followup film in 7-10 days. Dictated and Authenticated by: Glenda Ramos MD. Ordering:MARCELO Kaye MD
== END 2023-07-06 17:02 | disposition home or self-care (01) ==
PROVIDERS: Emergency Provider Emergency Medicine
DX: S93.402A Sprain of unspecified ligament of left ankle, initial encounter (principal); F17.210 Nicotine dependence, cigarettes, uncomplicated; X50.1XXA Overexertion from prolonged static or awkward postures, initial encounter; Y93.01 Activity, walking, marching and hiking; Y92.89 Other specified places as the place of occurrence of the external cause
CPT/HCPCS: 99283; 73590; 73610

== ENCOUNTER 2023-11-06 12:30 | Emergency (ER) | payer MEDICARE, SELFPAY ==
[2023-11-06] VITALS (18 sets, daily range): BP systolic 105–140; BP diastolic 61–80; PULSE 55–92; RESP 12–22; TEMP 36.3; O2SAT 97–100
--- NOTE | 2023-11-06 12:30 | RT.EKG_ITS ---
APPROVED REPORT Exam: Resting ECG Reason for Exam: Chest Pain Patient Location: E HR:78 bpm ECG Measurements Heart Rate 78 AXIS SD 108 P 4 QRSd 87 QRS 70 QT 364 T 39 QTc 415 Conclusion Sinus rhythm...normal P axis, V-rate 60- 99
[2023-11-06 12:49] LABS: Abs Immature Grans 0.05 10^3/uL (0.0-0.06); Absolute Eosinophil Count 0.03 10^3/uL (0.0-0.7); Absolute Lymphocyte Count 1.49 10^3/uL (1.2-3.4); Absolute Neutrophil Count 9.01 10^3/uL (1.2-6.7); Basophils % 0.5 %; Eosinophils % 0.3 %; HCT 37.3 % (36.0-46.0); HGB 12.4 g/dL (11.2-15.7); Immature Grans % 0.5 %; Lymphocytes % 13.4 %; MCH 31.5 pg (27.0-33.0); MCHC 33.2 % (32.0-36.0); MCV 95 fL (80-95); MPV 9.6 fL (8.0-11.0); Monocytes % 4.1 %; Neutrophils % 81.2 %; Platelet Count 345 10^3/uL (130-400); RBC 3.94 10^6/uL (3.93-5.22); RDW 12.9 % (11.7-14.6); RDW-SD 45.1 fL; WBC 11.09 10^3/uL (4.4-10.8)
[2023-11-06 12:50] LABS: Absolute Basophil Count 0.06 10^3/uL (0.0-0.2); Absolute Monocyte Count 0.45 10^3/uL (0.1-0.8)
--- NOTE | 2023-11-06 12:55 | DI.RAD_ITS ---
Exam(s) XR PORTABLE CHEST AP EXAM: XR PORTABLE CHEST AP CLINICAL HISTORY: chest pain. TECHNIQUE: 2D digital imaging was performed. COMPARISON: CR XR CHEST 2V PA LATERAL from 05/08/2023 FINDINGS: Single AP portable view. Fixation plate in the lower cervical spine again noted. Heart size is upper normal. The mediastinum is not widened. Lungs are clear. No infiltrates nor obvious pleural effusions. IMPRESSION: No acute pulmonary findings on this single AP portable view of the chest. DATA REPOSITORY: RADIATION DOSE DELIVERED:
[2023-11-06 13:05] LABS: PTT Activated 24.3 sec (23.6-32.8)
[2023-11-06 13:11] LABS: ALT 18 U/L (14-59); AST 12 U/L (15-37); Albumin 3.8 g/dL (3.4-5.0); Alkaline Phosphatase 87 U/L (46-116); Anion Gap 8.7 mmol/L (3-11); BUN 9 mg/dL (7-18); Bilirubin, Total 0.42 mg/dL (0.2-1.0); CO2 27.3 mmol/L (21.0-32.0); CREATININE 0.9 mg/dL (0.55-1.02); Calcium 9.3 mg/dL (8.5-10.1); Chloride 106 mmol/L (98-107); Estimated GFR 73.64 (mL/min/1.73m2); Glucose 149 mg/dL (74-106); Magnesium 1.8 mg/dL (1.8-2.4); Potassium 3.9 mmol/L (3.5-5.1); Sodium 142 mmol/L (136-145); Total Protein 7.3 g/dL (6.4-8.2); Troponin I < 50 ng/L (< or =60)
[2023-11-06] MEDS: LORazepam 1 MG TAB PO (13:14)
--- NOTE | 2023-11-06 13:42 | ED.GENADUL_ITS ---
Discharge Plan Disposition Patient Disposition: Home Condition: Stable Discharge Details Clinical Impression: Chest pain, pleuritic, Panic attack Primary Care Provider: Unknown,Unknown ED Provider: Smooth Pérez Home Meds and New Rx's Prescriptions: No Action No Known Home Meds Discharge Instructions Instructions: Anxiety, Adult ED, Pleuritic Chest Pain ED Additional Instructions: Please contact your primary care physician to arrange follow-up. Call today. Additional outpatient diagnostic testing may be indicated. Please call today to schedule timely reassessment. Return to the ER immediately for any worsening or new concerning symptoms. Discharge Data Discharge Date/Time-TO BE ENTERED AT DEPARTURE: 11/06/23 16:15 HPI General Mode of arrival: ambulatory . Date/Time Provider Initiated Documentation: 11/06/23 12:38 . Limitations to Documentation: no limitations . Information obtained by: patient . HPI Narrative: 58-year-old female with history of long-term nicotine use, 40+ pack-year, presents today with chest pain. Patient notes she was at court around 9 AM and was feeling anxious and had a panic attack and then developed chest pain. Pain is described as constant mild discomfort with intermittent severe crushing sensation in her left chest described as somebody strangling my heart. Patient notes pain is worse when she takes a deep breath. She states she had similar in the remote past and was diagnosed with pleurisy last fall. She has no history of coronary disease. Related Data Home Medications ?Medication ?Instructions ?Recorded ?Confirmed Unknown [No Known Home Meds] 11/06/23 11/06/23 Allergies Allergy/AdvReac Type Severity Reaction Status Date / Time bacitracin (From Neosporin Allergy Intermediate Hives Unverified 11/06/23 12:47 Plus) bee pollen Allergy Intermediate Hives Unverified 11/06/23 12:47 cyclobenzaprine (From Allergy Intermediate Hives Unverified 11/06/23 12:47 Flexeril) Iodinated Contrast Media Allergy Intermediate hives Unverified 11/06/23 12:47 lidocaine (From Neosporin Allergy Intermediate Hives Unverified 11/06/23 12:47 Plus) neomycin (From Neosporin Allergy Intermediate Hives Unverified 11/06/23 12:47 Plus) polymyxin B (From Neosporin Allergy Intermediate Hives Unverified 11/06/23 12:47 Plus) pramoxine (From Neosporin Allergy Intermediate Hives Unverified 11/06/23 12:47 Plus) NSAIDS (Non-Steroidal AdvReac Intermediate Other (See Unverified 11/06/23 12:47 Anti-Inflamma Comment) General Stated Complaint: Chest Pain PEPPER: 3 Review of Systems All systems reviewed & are unremarkable except as noted in HPI and below Constitutional Constitutional: Denies fever(s) Cardiovascular Cardiovascular: Reports as per HPI and Reports chest pain Respiratory Respiratory: Denies cough Exam Const General: cooperative and no acute distress HENMT Mouth: moist mucous membranes Eyes Conjunctivae: normal conjunctivae Sclera: normal sclerae Neck Neck: trachea midline and supple Resp Auscultation: clear to auscultation bilaterally, no rales, no rhonchi and no wheezes Cardio Rate: regular rate and not tachycardic Rhythm: regular rhythm GI Palpation: soft, not firm, no guarding, no masses, not rigid and nontender Skin General skin exam: no rashes or lesions noted Neuro General: patient alert, patient awake, patient oriented x3 and tone normal Extrem General: no calf tenderness and no edema Psych Appearance: grossly normal Mental Status: mental status grossly normal Affect: anxious affect Course Vital Signs Vital signs: Vital Signs Temperature 36.3 C L 11/06/23 12:32 Pulse 92 H 11/06/23 12:32 Respiratory Rate 17 11/06/23 12:32 Blood Pressure 122/72 11/06/23 12:32 Pulse Oximetry 99 11/06/23 12:32 Temperature 36.3 C L 11/06/23 12:32 Temperature Source Tympanic 11/06/23 12:32 Pulse 92 H 11/06/23 12:32 Respiratory Rate 17 11/06/23 12:32 Respiratory Effort Normal 11/06/23 12:36 Blood Pressure 122/72 11/06/23 12:32 Blood Pressure Position Sitting 11/06/23 12:32 Pulse Oximetry 99 11/06/23 12:32 Oxygen Delivery Method Room Air 11/06/23 12:32 Oxygen Flow Rate 0 11/06/23 12:32 Pain Level 9 11/06/23 12:32 Lab/Test Results Lab/Test Results: Laboratory Tests Range/Units 11/06/23 12:45 WBC (4.4-10.8) 10^3/uL 11.09 H RBC (3.93-5.22) 10^6/uL 3.94 Hgb (11.2-15.7) g/dL 12.4 Hct (36.0-46.0) % 37.3 MCV (80-95) fL 95 MCH (27.0-33.0) pg 31.5 MCHC (32.0-36.0) % 33.2 RDW (11.7-14.6) % 12.9 Plt Count (130-400) 10^3/uL 345 MPV (8.0-11.0) fL 9.6 Immature Gran % % 0.5 Neutrophils % % 81.2 Lymphocytes % % 13.4 Monocytes % % 4.1 Eosinophils % % 0.3 Basophils % % 0.5 Nucleated RBC % (0.0-0.3) % 0.0 Absolute Neutrophils (1.2-6.7) 10^3/uL 9.01 H Absolute Lymphocytes (1.2-3.4) 10^3/uL 1.49 Absolute Monocytes (0.1-0.8) 10^3/uL 0.45 Absolute Eosinophils (0.0-0.7) 10^3/uL 0.03 Absolute Basophils (0.0-0.2) 10^3/uL 0.06 APTT (23.6-32.8) sec 24.3 Sodium (136-145) mmol/L 142 Potassium (3.5-5.1) mmol/L 3.9 Chloride (98-107) mmol/L 106 Carbon Dioxide (21.0-32.0) mmol/L 27.3 Anion Gap (3-11) mmol/L 8.7 BUN (7-18) mg/dL 9 Creatinine (0.55-1.02) mg/dL 0.9 Est GFR (CKD-EPI 2020) (mL/min/1.73m2) 73.64 Glucose (74-106) mg/dL 149 H Calcium (8.5-10.1) mg/dL 9.3 Magnesium (1.8-2.4) mg/dL 1.8 Total Bilirubin (0.2-1.0) mg/dL 0.42 AST (15-37) U/L 12 L ALT (14-59) U/L 18 Alkaline Phosphatase (46-116) U/L 87 Troponin I (< or =60) ng/L < 50 Total Protein (6.4-8.2) g/dL 7.3 Albumin (3.4-5.0) g/dL 3.8 Medical Decision Making 58-year-old female smoker, here with left-sided chest pain that she has had since 9 AM associated with a panic attack that she had during court. Patient notes still mildly anxious but improved. She continues to have pain which waxes and wanes. Patient is hemodynamically stable. She is saturating well in no respiratory distress. Pain is worse with deep inspiration. 1525 --patient was reassessed and notes continued chest discomfort. Labs reviewed and nondiagnostic. Mild leukocytosis noted. Initial troponin negative. D-dimer negative. Chest x-ray was reviewed and interpreted by radiology: No acute pulmonary findings on this single AP portable view of the chest. Normal mediastinum. Plan for delta troponin. I will give acetaminophen IV for discomfort. 1602 --delta troponin negative. Plan for discharge with outpatient follow-up with PCP. Disposition decision was made weighing the risks and benefits of hospitalization versus outpatient treatment, the risk for further decompensation, and the patient's wishes. The patient was stable and requested discharge. Prior to discharge, my usual and customary return precautions were reviewed with the patient - this included follow-up instructions and reason to return to the emergency department if condition worsens, does not improve as expected, or other new concerns arise. Quality:SDOH Health Related Social Needs: No Data to Display PFSH All Active Problems (Updated 11/06/23 @ 16:04 by Smooth Pérez MD) Panic attack (Acute) Chest pain, pleuritic (Acute) COVID (Acute) Encounter for immunization (Acute) Social History Smoking/Tobacco Use Status: Current-Occasional Tobacco Type: cigarettes Smoking risk assessment performed?: Yes Alcohol Intake: current Alcohol Intake frequency: holidays/special occasions only Alcohol type: hard liquor Drug use: Socially Substance use type: marijuana Housing: other Do you feel safe at home: Yes Do you feel safe in your relationship?: Yes
[2023-11-06 13:55] LABS: D-Dimer 440 ng/mlFEU (<500)
[2023-11-06 15:45] LABS: Troponin I < 50 ng/L (< or =60)
[2023-11-06] MEDS: Acetaminophen 500 MG TAB (16:13)
--- NOTE | 2023-11-06 16:16 | NUR.NOTE ---
Referral given to Care Managers for Assistance with locating a Primary Care Provider for follow up and establish care as soon as available.
== END 2023-11-06 16:15 | disposition home or self-care (01) ==
PROVIDERS: Emergency Provider Student in an Organized Health Care Education/Training Program
DX: R07.81 Pleurodynia (principal); F41.0 Panic disorder [episodic paroxysmal anxiety]
CPT/HCPCS: 36415; 80053; 93005; 99283; 71045; 83735; 84484; 85025; 85379; 85730; 93010

== ENCOUNTER 2024-03-02 13:06 | Emergency (ER) | payer MEDICARE, SELFPAY ==
[2024-03-02] VITALS (11 sets, daily range): BP systolic 109–125; BP diastolic 50–69; PULSE 39–67; RESP 12–19; TEMP 36.4–36.8; O2SAT 96–99
--- NOTE | 2024-03-02 13:30 | RT.EKG_ITS ---
APPROVED REPORT Exam: Resting ECG Reason for Exam: ABD PAIN Patient Location: E HR:57 bpm ECG Measurements Heart Rate 57 AXIS NM 130 P 35 QRSd 84 QRS 65 QT 412 T 56 QTc 400 Conclusion Sinus bradycardia 57 Normal axis no stemi
[2024-03-02 14:46] LABS: Abs Immature Grans 0.04 10^3/uL (0.0-0.06); Absolute Basophil Count 0.06 10^3/uL (0.0-0.2); Absolute Eosinophil Count 0.12 10^3/uL (0.0-0.7); Absolute Lymphocyte Count 2.13 10^3/uL (1.2-3.4); Absolute Monocyte Count 0.44 10^3/uL (0.1-0.8); Absolute Neutrophil Count 6.43 10^3/uL (1.2-6.7); Basophils % 0.7 %; Eosinophils % 1.3 %; HCT 33.7 % (36.0-46.0); Immature Grans % 0.4 %; Lymphocytes % 23.1 %; MCH 30.7 pg (27.0-33.0); MCHC 32.6 % (32.0-36.0); MCV 94 fL (80-95); MPV 9.7 fL (8.0-11.0); Monocytes % 4.8 %; Neutrophils % 69.7 %; Platelet Count 254 10^3/uL (130-400); RBC 3.58 10^6/uL (3.93-5.22); RDW 12.8 % (11.7-14.6); RDW-SD 44.7 fL; WBC 9.22 10^3/uL (4.4-10.8)
[2024-03-02] MEDS: MORPHine 4 MG/ML SYR IVP (14:47)
[2024-03-02] MEDS: Ondansetron 4 MG/2 ML VIAL IVP (14:47)
[2024-03-02 15:02] LABS: ALT 22 U/L (14-59); AST 19 U/L (15-37); Albumin 3.3 g/dL (3.4-5.0); Alkaline Phosphatase 78 U/L (46-116); Anion Gap 6.5 mmol/L (3-11); BUN 13 mg/dL (7-18); Bilirubin, Total 0.38 mg/dL (0.2-1.0); CO2 27.5 mmol/L (21.0-32.0); CREATININE 0.9 mg/dL (0.55-1.02); Chloride 110 mmol/L (98-107); Estimated GFR 73.19 (mL/min/1.73m2); Glucose 85 mg/dL (74-106); Lipase 71 U/L (16-77); Magnesium 1.8 mg/dL (1.8-2.4); Potassium 4.5 mmol/L (3.5-5.1); Sodium 144 mmol/L (136-145); Total Protein 6.5 g/dL (6.4-8.2)
--- NOTE | 2024-03-02 15:15 | DI.CT_ITS ---
Exam(s) CT ABDOMEN PELVIS WO EXAM: CT ABDOMEN PELVIS WO CLINICAL HISTORY: ABD PAIN. TECHNIQUE: Imaging Protocol: Axial computed tomography images with coronal and sagittal reformatted images were created and reviewed. COMPARISON: No exams were available for comparison FINDINGS: Lung Bases: No acute findings. Liver: Normal density. No measurable mass. Gallbladder and biliary tract: Status post cholecystectomy. Dilatation of the common bile duct which is likely related to cholecystectomy.. No common duct stones. Pancreas: No abnormal calcifications or inflammatory process. Spleen: Normal size. Kidneys: Normal size, contour and axis.No radiodense stones or obstructive uropathy. Right renal cys ts. No follow-up recommended. No suspicious masses seen. Adrenal glands: No mass is seen. Lymph nodes: Within normal limits. Vasculature: Abdominal aorta non-dilated. Atherosclerotic changes. Bladder:No stones. No gross wall thickening. No evidence of mass. Bowel: Suture material along greater curvature fundus of stomach. No obstruction. No bowel wall thi ckening. Small quantity of stool. The appendix is not visualized. Peritoneal cavity: No ascites.No free air. No focal collection. No mesenteric inflammatory response. Reproductive organs: Status post hysterectomy. Bones: Hardware lower lumbar spine. Schmorl's node superior endplate of T12. Soft Tissues: Within normal limits. IMPRESSION: No acute abnormality in the abdomen and pelvis. RADIATION DOSE DELIVERED: 317.81mGy.cm Total DLP 317.81mGy.cm Total DLP DATA REPOSITORY: All CT scans at this facility are submitted to the National Radiology Data Registry (NRDR) Dose Index Registry (DIR) with the [employer] ([employer]). RADIATION OPTIMIZATION: All CT scans at this facility use at least one of these dose optimization te chniques: automated exposure control; mA and/or kV adjustment per patient size (includes targeted exa ms where dose is matched to clinical indication); or iterative reconstruction.
[2024-03-02 15:38] LABS: Bilirubin Negative (Negative); Blood Negative (Negative); Clarity Clear (Clear); Glucose Negative (Negative); Ketones Negative (Negative); Leukocyte Esterase Negative (Negative); Nitrite Negative (Negative); Specific Gravity 1.015 (1.005-1.025); pH 7.5 (5-8)
--- NOTE | 2024-03-02 16:41 | ED.GENADUL_ITS ---
Discharge Plan Disposition Patient Disposition: Home Condition: Stable Discharge Details Clinical Impression: Abdominal pain Primary Care Provider: None,None ED Provider: Bridgett Regan Home Meds and New Rx's Prescriptions: New dicyclomine 10 mg capsule 10 mg PO TID PRN (Reason: abdominal pain) Qty: 20 0RF ondansetron 4 mg tablet,disintegrating 4 mg PO Q8H PRN (Reason: nausea and vomiting) Qty: 20 0RF Discharge Instructions Instructions: Abdominal Pain, Adult ED Additional Instructions: * Lab work and CT imaging do not reveal a cause of your abdominal pain * Please take medication, Bentyl and Zofran, as needed. This has been sent to the pharmacy for you * Return with severe worsening of symptoms or not tolerating anything by mouth * You have been referred for PCP and you should be contacted shortly for an appointment HPI General Date/Time Provider Initiated Documentation: 03/02/24 13:42 . Limitations to Documentation: no limitations . Information obtained by: patient . HPI Narrative: 59-year-old female without significant past medical history presents for evaluation of abdominal pain. She reports that it started today. Associated with 1 episode of loose stool. Nausea this morning without any vomiting. Pain worse with eating. Denies sick contacts. Denies fever. Has otherwise been able to tolerate liquids. Significant surgical history includes gastric sleeve several years ago, cholecystectomy, appendectomy and hysterectomy Related Data Home Medications ?Medication ?Instructions ?Recorded ?Confirmed dicyclomine 10 mg capsule 10 mg PO TID PRN abdominal pain 03/02/24 #20 caps ondansetron 4 mg disintegrating 4 mg PO Q8H PRN nausea and 03/02/24 tablet vomiting #20 tabs Previous Rx's ?Medication ?Instructions ?Recorded dicyclomine 10 mg capsule 10 mg PO TID PRN abdominal pain 03/02/24 #20 caps ondansetron 4 mg disintegrating 4 mg PO Q8H PRN nausea and 03/02/24 tablet vomiting #20 tabs Allergies Allergy/AdvReac Type Severity Reaction Status Date / Time bacitracin (From Neosporin Allergy Intermediate Hives Unverified 11/06/23 12:47 Plus) bee pollen Allergy Intermediate Hives Unverified 11/06/23 12:47 cyclobenzaprine (From Allergy Intermediate Hives Unverified 11/06/23 12:47 Flexeril) Iodinated Contrast Media Allergy Intermediate hives Unverified 11/06/23 12:47 lidocaine (From Neosporin Allergy Intermediate Hives Unverified 11/06/23 12:47 Plus) neomycin (From Neosporin Allergy Intermediate Hives Unverified 11/06/23 12:47 Plus) polymyxin B (From Neosporin Allergy Intermediate Hives Unverified 11/06/23 12:47 Plus) pramoxine (From Neosporin Allergy Intermediate Hives Unverified 11/06/23 12:47 Plus) NSAIDS (Non-Steroidal AdvReac Intermediate Other (See Unverified 11/06/23 12:47 Anti-Inflamma Comment) General Stated Complaint: Abd Prob PEPPER: 3 Exam Narrative Exam Narrative: Review of Systems: All systems reviewed & are unremarkable except as noted in HPI and below Well-developed, no acute distress NCAT Moist mucous membranes RRR Unlabored respiratory effort clear bilaterally Nondistended abdomen soft, diffuse tenderness Course Vital Signs Vital signs: Vital Signs Temperature 36.8 C 03/02/24 13:37 Pulse 67 03/02/24 13:37 Respiratory Rate 18 03/02/24 13:37 Blood Pressure 112/69 03/02/24 13:37 Pulse Oximetry 96 03/02/24 13:37 Temperature 36.8 C 03/02/24 13:37 Pulse 42 L 03/02/24 15:32 Pulse 44 L 03/02/24 16:10 Respiratory Rate 14 03/02/24 16:10 Respiratory Effort Normal 03/02/24 13:40 Blood Pressure 115/50 L 03/02/24 15:32 Blood Pressure Mean 67 03/02/24 15:32 Pulse Oximetry 97 03/02/24 16:10 Oxygen Delivery Method Room Air 03/02/24 13:37 Oxygen Flow Rate 0 03/02/24 13:37 Pain Level 9 03/02/24 14:47 Lab/Test Results Lab/Test Results: Laboratory Tests Range/Units 03/02/24 03/02/24 14:30 14:40 WBC (4.4-10.8) 10^3/uL 9.22 RBC (3.93-5.22) 10^6/uL 3.58 L Hgb (11.2-15.7) g/dL 11.0 L Hct (36.0-46.0) % 33.7 L MCV (80-95) fL 94 MCH (27.0-33.0) pg 30.7 MCHC (32.0-36.0) % 32.6 RDW (11.7-14.6) % 12.8 Plt Count (130-400) 10^3/uL 254 MPV (8.0-11.0) fL 9.7 Immature Gran % % 0.4 Neutrophils % % 69.7 Lymphocytes % % 23.1 Monocytes % % 4.8 Eosinophils % % 1.3 Basophils % % 0.7 Nucleated RBC % (0.0-0.3) % 0.0 Absolute Neutrophils (1.2-6.7) 10^3/uL 6.43 Absolute Lymphocytes (1.2-3.4) 10^3/uL 2.13 Absolute Monocytes (0.1-0.8) 10^3/uL 0.44 Absolute Eosinophils (0.0-0.7) 10^3/uL 0.12 Absolute Basophils (0.0-0.2) 10^3/uL 0.06 Sodium (136-145) mmol/L 144 Potassium (3.5-5.1) mmol/L 4.5 Chloride (98-107) mmol/L 110 H Carbon Dioxide (21.0-32.0) mmol/L 27.5 Anion Gap (3-11) mmol/L 6.5 BUN (7-18) mg/dL 13 Creatinine (0.55-1.02) mg/dL 0.9 Est GFR (CKD-EPI 2020) (mL/min/1.73m2) 73.19 Glucose (74-106) mg/dL 85 Calcium (8.5-10.1) mg/dL 9.0 Magnesium (1.8-2.4) mg/dL 1.8 Total Bilirubin (0.2-1.0) mg/dL 0.38 AST (15-37) U/L 19 ALT (14-59) U/L 22 Alkaline Phosphatase (46-116) U/L 78 Total Protein (6.4-8.2) g/dL 6.5 Albumin (3.4-5.0) g/dL 3.3 L Lipase (16-77) U/L 71 Urine Color (Yellow) Yellow Urine Clarity (Clear) Clear Urine pH (5-8) 7.5 Ur Specific [place] (1.005-1.025) 1.015 Urine Protein (Neg-Trace) mg/dL Negative Urine Ketones (Negative) mg/dL Negative Urine Blood (Negative) Negative Urine Nitrite (Negative) Negative Urine Bilirubin (Negative) Negative Urine Urobilinogen (Up to 0.2) mg/dL 1.0 H Ur Leukocyte Esterase (Negative) Negative Urine Glucose (Negative) mg/dL Negative Medical Decision Making Emergent evaluation of abdominal pain. Patient is hemodynamically stable and afebrile. She is a nonperitoneal abdomen, but has diffuse tenderness. She has had multiple abdominal surgeries. Initial differential includes peptic ulcer, gastritis, pancreatitis, bowel obstruction. Lab work was obtained, no tessy kocytosis or anemia. No electrolyte derangement. Lipase is not elevated. LFTs and kidney function are within normal limits. Urinalysis does not demonstrate signs of infection. EKG reviewed and independently interpreted, sinus bradycardia [address] scan of her abdomen was obtained without contrast due to a history of allergic reaction to iodinated contrast. This does not reveal an acute process. Patient has remained comfortable without any additional episodes of loose stool or vomiting in the emergency department. At this time no acute emergent etiology has been identified. There is no indication for hospitalization. Patient reports that she is just returned to the area and does not have PCP follow-up. Will refer to care management to establish care with PCP in the ER follow-up visit. Will discharge with Olamideyl and Gayathri. When instructed regarding her discharge instructions and medications that she would be provided, the patient started screaming at the nurse and myself. She states that you are just telling me that nothing is wrong and it is all in my head. And that she wanted prescription medication for pain. She advised that she would not be getting any narcotics and that the Bentyl is for abdominal cramping. She was advised that no anatomic or physiologic etiology for her pain was identified, and she was being treated appropriately for symptoms. Quality:SDOH Health Related Social Needs: No Data to Display PFSH All Active Problems Abdominal pain (Acute) COVID (Acute) Encounter for immunization (Acute) Social History Smoking/Tobacco Use Status: Current-Occasional Tobacco Type: cigarettes Smoking risk assessment performed?: Yes Alcohol Intake: current Alcohol Intake frequency: holidays/special occasions only Alcohol type: hard liquor Drug use: Socially Substance use type: marijuana Housing: other Do you feel safe at home: Yes Do you feel safe in your relationship?: Yes
== END 2024-03-02 17:17 | disposition home or self-care (01) ==
PROVIDERS: Emergency Provider Emergency Medicine
DX: R10.30 Lower abdominal pain, unspecified (principal); R11.0 Nausea; R19.7 Diarrhea, unspecified; Z87.11 Personal history of peptic ulcer disease; Z87.19 Personal history of other diseases of the digestive system; F17.200 Nicotine dependence, unspecified, uncomplicated
CPT/HCPCS: 80053; 83690; 93005; 96374; 96375; 99284; 74176; 81003; 83735; 85025; 93010; J2270; J2405

== ENCOUNTER 2024-08-31 10:27 | Emergency (ER) | payer MEDICARE, MEDICAID, SELFPAY ==
[2024-08-31 10:30] VITALS: BP 156/90; PULSE 75; RESP 18; TEMP 36.9; O2SAT 100
--- NOTE | 2024-08-31 10:45 | DI.RAD_ITS ---
Exam(s) XR KNEE LT 4V AP,LAT,DINESH,PAT EXAM: XR KNEE LT 4V AP,LAT,DINESH,PAT CLINICAL HISTORY: lateral patellar pain after fall. TECHNIQUE: 2D digital imaging was performed of the left knee. Four images were obtained. Merchant, AP, lateral and PA tunnel views were obtained. COMPARISON: There are no priors for comparison. FINDINGS: BONES: No acute fracture is present. No bony destructive lesion is seen. JOINTS: The knee is normally aligned. No joint effusion is seen. No loose body. SOFT TISSUE: Normal. IMPRESSION: No acute fracture or dislocation. DATA REPOSITORY: RADIATION DOSE DELIVERED:
--- NOTE | 2024-08-31 10:46 | ED.GENADUL_ITS ---
Discharge Plan Disposition Patient Disposition: Home Condition: Good Discharge Details Clinical Impression: Injury of knee, Abrasion, Derangement, knee internal Primary Care Provider: None,None ED Provider: Harleen Hill Home Meds and New Rx's Prescriptions: No Action No Known Home Meds Discharge Instructions Instructions: Internal Derangement of the Knee (DC) Additional Instructions: Your x-ray and exam are reassuring here today. However, you may have a smaller injury that I am not able to detect at this point. Your abrasions and the swelling can also cause enlargement of your discomfort. Please encourage rest, ice, elevation. Tylenol as needed for discomfort, please take as directed on the packaging and do not exceed 3000 mg daily. I have referred you to local primary care to and have asked for you to follow-up with them in the next 2 weeks for reevaluation. Please continue with hinged knee brace until reevaluated. If you develop any new or worsening symptoms please seek care urgently once again. HPI General Date/Time Provider Initiated Documentation: 08/31/24 10:44 . Limitations to Documentation: no limitations . Information obtained by: patient and RN notes reviewed . History of Present Illness 59 year old F presents to the emergency department with the chief complaint of tripped and fell on left knee, continues to have lateral patellar pain, described as severe, Quality is described as aching, and is localized to the left and lower extremity. Patient reports no radiation. Patient started experiencing this day(s) (3) and it has been constant. Immobilization improves symptom(s), Movement worsens symptoms . Patient notes no other symptoms.. Patient did receive the following treatments prior to arrival, other (APAP) Related Data Home Medications ?Medication ?Instructions ?Recorded ?Confirmed Unknown [No Known Home Meds] 08/31/24 08/31/24 Allergies Allergy/AdvReac Type Severity Reaction Status Date / Time bacitracin (From Neosporin Allergy Intermediate Hives Unverified 08/31/24 10:31 Plus) bee pollen Allergy Intermediate Hives Unverified 08/31/24 10:31 cyclobenzaprine (From Allergy Intermediate Hives Unverified 08/31/24 10:31 Flexeril) Iodinated Contrast Media Allergy Intermediate hives Unverified 08/31/24 10:31 lidocaine (From Neosporin Allergy Intermediate Hives Unverified 08/31/24 10:31 Plus) neomycin (From Neosporin Allergy Intermediate Hives Unverified 08/31/24 10:31 Plus) polymyxin B (From Neosporin Allergy Intermediate Hives Unverified 08/31/24 10:31 Plus) pramoxine (From Neosporin Allergy Intermediate Hives Unverified 08/31/24 10:31 Plus) NSAIDS (Non-Steroidal AdvReac Intermediate Other (See Unverified 08/31/24 10:31 Anti-Inflamma Comment) General Stated Complaint: Orthopedic PEPPER: 4 Review of Systems Constitutional Constitutional: Reports as per HPI, Denies chills, Denies headache(s) and Denies weakness ENT Ears, Nose, Mouth, and Throat: Denies headache(s) Cardiovascular Cardiovascular: Reports as per HPI Respiratory Respiratory: Reports as per HPI and Denies cough Musculoskeletal Musculoskeletal: Reports as per HPI and Denies tingling Integumentary/Breasts Skin/Breast: Reports as per HPI and Denies rash Neurologic Neurologic: Reports as per HPI, Denies headache(s), Denies tingling, Denies paresthesias and Denies weakness Exam Const General: cooperative, healthy appearing, comfortable, no acute distress, well developed and well groomed Nutritional Appearance: average body habitus and well nourished Orientation: alert and awake Resp Effort & Inspection: normal respiratory effort, able to speak in complete sentences and no respiratory distress Cardio Rate: regular rate Rhythm: regular rhythm Skin Trauma: abrasion (bilateral knees, L>R, healing well with no erythema, warmth) Neuro General: patient alert and patient awake Cognition: normal cognition Speech: speech normal Motor: muscle tone normal throughout Sensory Exam: no sensory deficits noted Extrem Knee images: 2 1. area of discomfort is maximal lateral to the patella. She has 2+ distal pulses, sensation intact, full ROM of ankle. No pain in calf or thigh. Pain along the joint line, particularly laterally. No signficant effusion or swelling. No erythema, warmth, drainage. She does have abrasion but htis appears to be healing well. Full ROM with increased discomfort with full flexion. Ligamentously intact with varus and valgus stress testing as well as anterior/posterior drawer. Able to straight leg raise without pain. No patellar deformity although she is tender along the lateral patella. Course Vital Signs Vital signs: Vital Signs Temperature 36.9 C 08/31/24 10:30 Pulse 75 05/12/25 10:30 Respiratory Rate 18 08/31/24 10:30 Blood Pressure 156/90 H 08/31/24 10:30 Pulse Oximetry 100 08/31/24 10:30 Temperature 36.9 C 08/31/24 10:30 Pulse 75 08/31/24 10:30 Respiratory Rate 18 08/31/24 10:30 Blood Pressure 156/90 H 08/31/24 10:30 Pulse Oximetry 100 08/31/24 10:30 Pain Level 8 08/31/24 10:30 Medical Decision Making Patient is a pleasant 59 year old female presenting with c/c of left knee pain. She reports she tripped on a crack in the sidewalk about three days ago falling on both knees and suffering abrasions. She states tetanus is UTD, about 5 years ago. Denies other injury at the time of the incident, did not strike her head, denies LOC. She denies numbness/tingling in the LLE. States that the abrasions are not bothersome but she continues to have significant discofmort, particularly with movement, along the lateral patella. States that pain has persisted where other knee has improved. No previous surgery to this knee but does report that she was injured by a horse several years ago. On exam, patient appears non-toxic. Ambulating with antalgic gait. Neurovascularly intact with 2+ distal pulses. Sensation is intact. Full range of motion of the ankle. No pain with palpation over the calf or thigh. She has full ROM of the knee with increased discomfort at maximal flexion. Pain over the lateral joint line. No effusion. Abrasion noted without signs of infection. Ligamentously intact. No indication of significant deformity. No indication of dislocation. Based on mechanism, considered fx and will obtain XR. Patient reports increased discomfort, took APAP prior to arrival. Will give Ketoralac. She has allergy to NSAIDS listed but she reports this is not allergy but rather associated with complication possibility d/t previous surgery. Per radiologist, no acute fx or dislocation. Discussed with patient. Will fit with brace. Encouraged RICE. She does not have PCP, have asked care amangemetn to ensure f/u with in the next 2 wks. Return precautions discussed. All of her questions and concerns were addressed, she is in agreement with this plan. Quality:SDOH Health Related Social Needs: 2 Health related social needs housing instability, house d, with risk of homelessness (Z59.811), food insecurity (Z59.41), material hardship(utilities) (Z59.12), transportation insecurity (Z59.82), problems related to housing/economic circumstances (Z59.89), problems finding work (Z56.9), feeling lonely/isolated (Z60.8) Health related social needs details pt homeless since moving back to [place], today she got housing established for the summer [facility] All Active Problems (Updated 08/31/24 @ 12:36 by MALIK Beth) Derangement, knee internal (Acute) Abrasion (Acute) Injury of knee (Acute) COVID (Acute) Encounter for immunization (Acute) Social History Smoking/Tobacco Use Status: Current-Occasional Tobacco Type: cigarettes Smoking risk assessment performed?: Yes Alcohol Intake: current Alcohol Intake frequency: holidays/special occasions only Alcohol type: hard liquor Drug use: Socially Substance use type: marijuana Housing: other Do you feel safe at home: Yes Do you feel safe in your relationship?: Yes
[2024-08-31] MEDS: Ketorolac 30 MG/ML VIAL IM (12:05)
[2024-08-31 12:40] VITALS: BP 129/51; PULSE 66; RESP 18; O2SAT 99
== END 2024-08-31 12:52 | disposition home or self-care (01) ==
PROVIDERS: Emergency Provider Physician Assistant
DX: M23.92 Unspecified internal derangement of left knee (principal); W10.1XXA Fall (on)(from) sidewalk curb, initial encounter; S80.212A Abrasion, left knee, initial encounter; Z59.811 Housing instability, housed, with risk of homelessness; Z59.41 Food insecurity; Z59.12 Inadequate housing utilities; Z59.82 Transportation insecurity; Z59.89 Other problems related to housing and economic circumstances; Z56.9 Unspecified problems related to employment; Z60.8 Other problems related to social environment
CPT/HCPCS: 99283; 99284; 29505; 96372; 73564; J1885

== ENCOUNTER 2024-11-02 02:24 | Outpatient (CLI) | payer MEDICARE, MEDICAID, SELFPAY ==
--- NOTE | 2024-11-02 15:10 | DI.MRI_ITS ---
Exam(s) MR UPPER JOINT RT WO EXAM: MR UPPER JOINT RT WO CLINICAL HISTORY: Rt shoulder pain, unspecified chronicity, M25.511 TECHNIQUE: Multiplanar multisequence MRI of the shoulder was performed. COMPARISON: MR MR SHOULDER W/O RT from 12/18/2021 (outside study) FINDINGS: There are no plain films of the shoulder available at the time of this MRI interpretation. MARROW:There is no evidence of fracture, Hill-Sachs deformity, nor ominous osseous lesions. GLENOHUMERAL JOINT: No joint effusion nor obvious loose intra-articular bodies. No chondral defects. No osteophytes. Minimal if any significant osteoarthritic degenerative changes. There are no degenerative subarticular cysts. ROTATOR CUFF MECHANISM: AC JOINT/ACROMIUM: There are mild degenerative changes in the AC joint, similar to previous. There does not appear to be significant impingement at this level.. There is no evidence of os acromiale. Supraspinatus: There is tendinitis signal again noted in the more anterior aspect of the supraspinatus tendon there is a suggestion of a focus of signal dropout more laterally in the tendon just above the greater tuberosity which may be calcium within tendon. This difficult to assess accurately without plain films. Infraspinatus: Intact. No evidence of tear nor muscle atrophy. Teres Minor: Intact. No evidence of tear nor muscle atrophy. Subscapularis/anterior cuff: Intact. No abnormal signal at the level of the multipennate insertional fibers. No significant tear nor atrophy. BICEPS TENDON: Exhibits normal position within the intertubercular groove. No evidence of tear. LABRUM: There is no abnormal signal in the superior labrum posterior to the biceps insertion site. Posterior labrum appears intact. Anterior labrum appears intact inferior labrum appears intact as does the inferior glenohumeral ligament. QUADRILATERAL SPACE: No evidence of mass in the region of the axillary nerve and dorsal circumflex humeral vessels. Visualized triceps muscle at this level appears unremarkable. IMPRESSION: 1. There is some tendinitis-tendinosis signal in the more anterior fibers of the supraspinatus tendon. There does not appear to be a high-grade tear of the supraspinatus. Possible calcific tendinitis but difficult to assess accurately without ascend plain films. 2. No significant findings in the infraspinatus and subscapularis-anterior cuff 3. No evidence of obvious biceps tendon tear and no evidence of obvious labral tear nor paralabral cyst. 4. Minimal degenerative changes. No joint effusion. No loose intra-articular bodies evident DATA REPOSITORY:
== END 2024-11-02 02:44 ==
LOC: DI 02:24
PROVIDERS: Visit Provider Physician Assistant Medical
DX: M75.31 Calcific tendinitis of right shoulder (principal)
CPT/HCPCS: 73221

== ENCOUNTER 2025-01-18 12:04 | Emergency (ER) | payer MEDICARE, MEDICAID, SELFPAY ==
[2025-01-18 12:21] VITALS: BP 119/66; PULSE 60; RESP 18; TEMP 36.6; O2SAT 96
--- NOTE | 2025-01-18 12:45 | DI.RAD_ITS ---
Exam(s) XR FINGER LT LITTLE EXAM: XR FINGER LT LITTLE CLINICAL HISTORY: injury ttp mid phalanx. TECHNIQUE: 2D digital imaging was performed. COMPARISON: No exams were available for comparison FINDINGS: 3 views There is a midshaft fracture of the middle phalanx of the 5th finger with mild displacement and dorsal angulation. Fracture lines do not appear to extend into interphalangeal joint articulations. No radiopaque foreign bodies. No gas in the soft tissues. No osseous lesions. IMPRESSION: Mildly displaced and angulated fracture of the middle phalanx of the 5th finger. DATA REPOSITORY: RADIATION DOSE DELIVERED:
[2025-01-18] MEDS: Acetaminophen 325 MG TAB 650 MG PO (12:55)
--- NOTE | 2025-01-18 13:14 | ED.GENADUL_ITS ---
Discharge Plan Disposition Patient Disposition: Home Condition: Stable Discharge Details Clinical Impression: Closed fracture of middle phalanx of left little finger Primary Care Provider: None,None ED Provider: Smooth Pérez Home Meds and New Rx's Prescriptions: No Action No Known Home Meds Discharge Instructions Instructions: Finger Fracture ED Additional Instructions: Keep splint intact. Please follow-up with orthopedic surgery. Do not use your finger until cleared by orthopedics. Please take tylenol (acetaminophen) 650 mg every 6 hours as needed for pain. Be sure to avoid any other medications that containe tylenol (acetaminophen). Return to the emergency department immediately for any worsening or new concerning symptoms. Referrals: [facility] [Provider Group] Discharge Data Discharge Date/Time-TO BE ENTERED AT DEPARTURE: 01/18/25 14:16 HPI General Mode of arrival: ambulatory . Date/Time Provider Initiated Documentation: 01/18/25 12:43 . Limitations to Documentation: no limitations . Information obtained by: patient . HPI Narrative: HISTORY OF PRESENT ILLNESS The patient is a 59-year-old female presenting with a left fifth digit injury. She sustained an injury to her left fifth digit this morning at approximately 8:30 AM when it was caught in a dog leash. The area is swollen, and she experiences pain, particularly when attempting to bend the finger. She is unable to move the finger due to the pain. She is right-handed. She has been taking Tylenol for pain relief but can not take Motrin as it is an NSAID. Related Data Home Medications ?Medication ?Instructions ?Recorded ?Confirmed Unknown [No Known Home Meds] 08/31/24 0 01/18/25 Allergies Allergy/AdvReac Type Severity Reaction Status Date / Time bacitracin (From Neosporin Allergy Intermediate Hives Unverified 01/18/25 12:26 Plus) bee pollen Allergy Intermediate Hives Unverified 01/18/25 12:26 cyclobenzaprine (From Allergy Intermediate Hives Unverified 01/18/25 12:26 Flexeril) Iodinated Contrast Media Allergy Intermediate hives Unverified 01/18/25 12:26 lidocaine (From Neosporin Allergy Intermediate Hives Unverified 01/18/25 12:26 Plus) neomycin (From Neosporin Allergy Intermediate Hives Unverified 01/18/25 12:26 Plus) polymyxin B (From Neosporin Allergy Intermediate Hives Unverified 01/18/25 12:26 Plus) pramoxine (From Neosporin Allergy Intermediate Hives Unverified 01/18/25 12:26 Plus) NSAIDS (Non-Steroidal AdvReac Intermediate Other (See Unverified 01/18/25 12:26 Anti-Inflamma Comment) General Stated Complaint: Orthopedic PEPPER: 4 Review of Systems Musculoskeletal Musculoskeletal: Reports as per HPI Exam Extrem Left upper extremity: hand Other: PHYSICAL EXAM Musculoskeletal: Swelling noted at the PIP joint and mid phalanx of the left fifth digit. Tenderness observed at the mid phalanx of the left fifth digit. Patient unable to wiggle the left fifth digit due to pain. Distal sensation intact. Course Vital Signs Vital signs: Vital Signs Temperature 36.6 C 01/18/25 12:21 Pulse 60 01/18/25 12:21 Respiratory Rate 18 01/18/25 12:21 Blood Pressure 119/66 01/18/25 12:21 Pulse Oximetry 96 01/18/25 12:21 Temperature 36.6 C 01/18/25 12:21 Temperature Source Oral 01/18/25 12:21 Pulse 60 01/18/25 12:21 Respiratory Rate 18 01/18/25 12:21 Blood Pressure 119/66 01/18/25 12:21 Blood Pressure Position Supine 01/18/25 12:21 Pulse Oximetry 96 01/18/25 12:21 Oxygen Delivery Method Room Air 01/18/25 12:21 Oxygen Flow Rate 0 01/18/25 12:21 Pain Level 9 01/18/25 12:21 Medical Decision Making ASSESSMENT AND PLAN Initial Assessment: 59-year-old female with left fifth digit injury. Swelling and tenderness at proximal interphalangeal joint and mid phalanx. Significant pain and inability to move the finger. Injury caused by dog leash. Differential Diagnosis: - Fracture: Swelling and tenderness at PIP and mid phalanx. X-ray to assess. - Sprain: Swelling and pain. Less likely due to inability to move finger. X-ray to confirm. ED Course: - Administered Tylenol - X-ray of left fifth digit obtained and reviewed and interpreted by me: Mildly displaced fracture mid phalanx - Volar splint was applied by me. - Usual and customary discharge instructions were reviewed with the patient. Clinical Impression: - Left fifth digit fracture mid phalanx Follow-Up: - Orthopedics This document was written with the assistance of HALI Soto. The patient consented to its use. Quality:SDOH Health Related Social Needs: Health related social needs risk of homeless food inse curity transpo insecurity material hardship house/econ circumstance finding work lonely/isolated Health related social needs details pt homeless since moving back to [place], today she got housing established for the summer [facility] All Active Problems (Updated 01/18/25 @ 13:37 by Smooth Pérez MD) Closed fracture of middle phalanx of left little finger (Acute) No-show for appointment (Acute) COVID (Acute) Encounter for immunization (Acute) Social History Smoking/Tobacco Use Status: Current every day Tobacco Type: e-cigarettes Smoking risk assessment performed?: Yes Alcohol Intake: former Drug use: Socially Substance use type: marijuana Housing: other Do you feel safe at home: Yes Do you feel safe in your relationship?: Yes
== END 2025-01-18 14:16 | disposition home or self-care (01) ==
PROVIDERS: Emergency Provider Student in an Organized Health Care Education/Training Program
DX: S62.627A Displaced fracture of middle phalanx of left little finger, initial encounter for closed fracture (principal); Y93.K1 Activity, walking an animal; X58.XXXA Exposure to other specified factors, initial encounter; Z59.811 Housing instability, housed, with risk of homelessness; Z59.82 Transportation insecurity; Z59.87 Material hardship due to limited financial resources, not elsewhere classified; Z59.41 Food insecurity
CPT/HCPCS: 99283 ×2; 29130; 73140

== ENCOUNTER 2025-01-27 14:02 | Outpatient (CLI) | payer MEDICARE, MEDICAID, SELFPAY ==
--- NOTE | 2025-01-27 13:00 | DI.RAD_ITS ---
Exam(s) XR FINGER LT LITTLE EXAM: XR FINGER LT LITTLE EXAM DATE/TIME: CLINICAL HISTORY: fracture follow up. TECHNIQUE: 2D digital imaging was performed of the left finger. Two views were obtained. PA/AP, and lateral views were obtained. COMPARISON: None. FINDINGS: BONES: There has been no change in alignment of the fracture involving the middle phalanx of the left 5th finger. No bony destructive lesion is seen. JOINTS: No dislocation is present. SOFT TISSUE: Normal. IMPRESSION: Stable alignment of the fracture of the middle phalanx of the left 5th finger. DATA REPOSITORY: RADIATION DOSE DELIVERED:
== END 2025-01-27 14:03 | disposition home or self-care (01) ==
LOC: DIORS 14:03
PROVIDERS: Visit Provider Student in an Organized Health Care Education/Training Program
DX: S62.627A Displaced fracture of middle phalanx of left little finger, initial encounter for closed fracture (principal); X50.0XXA Overexertion from strenuous movement or load, initial encounter; Y93.K1 Activity, walking an animal
CPT/HCPCS: 99213; 73140

== ENCOUNTER 2025-02-17 14:45 | Outpatient (CLI) | payer MEDICARE, MEDICAID, SELFPAY ==
--- NOTE | 2025-02-17 13:45 | DI.RAD_ITS ---
Exam(s) XR FINGER LT LITTLE EXAM: XR FINGER LT LITTLE EXAM DATE/TIME: CLINICAL HISTORY: Pain. TECHNIQUE: 2D digital imaging was performed of the left finger. Two views were obtained. PA/AP, and lateral views were obtained. COMPARISON: Comparison examination is 01/27/2025. FINDINGS: BONES: There has been no change in alignment of the fracture of the middle phalanx of the left little finger. The fracture line is still visualized. The bones are osteopenic. No new fracture is seen. No bony destructive lesion is seen. JOINTS: No dislocation is present. SOFT TISSUE: Normal. IMPRESSION: Stable fracture of the middle phalanx of the left little finger. DATA REPOSITORY: RADIATION DOSE DELIVERED:
== END 2025-02-17 14:46 | disposition home or self-care (01) ==
LOC: DIORS 14:45
PROVIDERS: Visit Provider Student in an Organized Health Care Education/Training Program
DX: S62.627D Displaced fracture of middle phalanx of left little finger, subsequent encounter for fracture with routine healing (principal); X58.XXXD Exposure to other specified factors, subsequent encounter
CPT/HCPCS: 99213; 73140